=== PATIENT | female | born 1995 | race Caucasian/White ===

== ENCOUNTER → 2023-01-25 08:18 | Outpatient (BNVA) | payer OTHER, SELFPAY | PROVIDERS: PCP Internal Medicine; Visit Provider Nurse Practitioner Family | DX: G43.009 Migraine without aura, not intractable, without status migrainosus (principal); G47.9 Sleep disorder, unspecified | CPT/HCPCS: 99202 ==

== ENCOUNTER → 2023-04-05 13:49 | Outpatient (BNVA) | payer OTHER, SELFPAY | PROVIDERS: PCP Internal Medicine; Visit Provider Nurse Practitioner Family ==

== ENCOUNTER 2023-10-25 10:59 | Outpatient (AMB) | payer OTHER, SELFPAY ==
[2023-10-25 11:04] VITALS: BP 110/64; PULSE 99; O2SAT 97; BMI 32.8
--- NOTE | 2023-10-25 11:04 | MHC.OFFVIS ---
Intake Vital Signs 10/25/23 11:04 Height 5 ft Weight 168 lb BMI 32.8 BP 110/64 Blood Pressure Location Lt brachial Position Sitting Pulse 99 Pulse Source Pulse Oximeter Pulse Oximetry (%) 97 Oxygen Delivery Method Room Air Intake Visit Reasons: 6M F/U - LVM Intake Note: Pt presents to the office today for a 6 month follow up for migraines. Pt states since taking the Aimovig she isnt getting migraines but states she does still get small headaches every other week. Allergies amoxicillin [AMOXICILLIN] Allergy (Unknown, Unverified 10/25/23 11:06) UNKNOWN, hives Seasonal Allergies Allergy (Unknown, Verified 10/25/23 11:06) Hives Medication List - Last Reconciled 10/25/23 by JANUSZ Fields albuterol sulfate 90 mcg/actuation (ProAir HFA) 1 - 2 puffs inhalation Q4-6H PRN dupilumab (Dupixent) mg subcut Q2W epinephrine IM erenumab-aooe (Aimovig Autoinjector) 140 mg subcut ONCE 30 days levonorgestrel (Mirena) intrauterine magnesium oxide 400 mg PO BEDTIME 30 days riboflavin (vitamin B2) 400 mg PO DAILY 30 days rizatriptan 5 - 10 mg (0.5 - 1 x 10 mg) PO Q2H PRN 21 days HPI HPI Comments History of Present Illness Details 28-yr-old female presents for f/u visit. Pt denies any significant interval medical changes. We had increased Amitriptyline as pt was having 2 migraine attacks per week, but pt did not tolerate increase so pt stopped it. Since, pt was started on Aimovig approx 3 weeks ago- since she has not had a migraine. She has had a mild headache once every other week- responsive to OTC Aleve. She recently had a bout of right sided pressure neck pain into right mastoid region. This was mod-severe x's 3 days, then subsided over following 2 days. She had just woke up with this pain. Denies preceding infection, fever, ear pain. She never had this pain before. She tried Tylenol, Ibuprofen, Aleve, ice, heat- ineffective. She went to ER but the wait was very long- so left w/o being seen. She has woken up with neck pain before- from sleeping, but never was this intense or did not last that long. [facility], [facility] Medical History Depression Nasal polyps Asthma Family History Paternal Grandmother Cancer Mother Hypertension Hypercholesteremia Arthritis Father Diabetes History of heart attack Hypertension Sister Asthma Social History Alcohol intake: current Patient Tobacco Use Status: Never used Tobacco Review of Systems Const All systems reviewed & are unremarkable except as noted in HPI and below Physical Exam Vital Signs: Last Vital Signs Pulse 99 10/25/23 11:04 BP 110/64 10/25/23 11:04 Pulse Ox 97 10/25/23 11:04 Oxygen Delivery Method Room Air 10/25/23 11:04 BMI result Body Mass Index 32.8 Const General: cooperative and no acute distress Orientation/consciousness: patient oriented x3 HEENT Head: Yes normocephalic Resp Effort & Inspection: normal respiratory effort and able to speak in complete sentences Neuro Other: Mild posterior cervical tightness. No scalp tenderness. Full cervical ROM. General: patient oriented x3, gait normal and CN's II-XI intact bilaterally Cognition (Neuro): normal cognition Motor exam (neuro): 5/5 motor strength present throughout Psych Appearance: grossly normal Mental Status: mental status grossly normal Speech and movement: Normal speech and movement present Affect: normal affect Attitude: cooperative Thought process: Normal thought process present Thought content: Normal thought content present Assessment & Plan Assessment & Plan (1) Migraine without aura: Code(s): G43.009 - Migraine without aura, not intractable, without status migrainosus (2) Neck pain: Code(s): M54.2 - Cervicalgia Plan For overall headache management: Continue to optimize good self-care, including but not limited to maintaining a healthy diet, adequate fluid intake, adequate sleep, and engaging in regular physical activity. Track headaches. For right neck-mastoid pain- ? migraine If recurrs, trial Rizatriptan. Future considerations- c-spine imaging, PT. ? For acute headache treatment: Continue Rizatriptan 5-10mg prn. Reviewed potential adverse effects of triptans, including but not limited to nausea, fatigue, chest tightness/tingling (usually passes within a few minutes), medication overuse headaches. Previous acute migraine medication trials: Sumatriptan- sweating and head on fire sensation. Acute migraine medication contraindications: None at the time ? For headache prevention medication: Continue Riboflavin 400mg qam Continue Magnesium 400mg every other/every 3rd night-may hold for loose stools Continue Aimovig 140mg sc q month- as pt has already seen good clinical effect from use. Stop Amitriptyline 10mg qhs. Previous migraine prevention medication trials: Amitriptyline 20mg qhs- ineffective and not tolerated. Migraine prevention medication contraindications: BBS d/t symptomatic asthma dx. ? f/u in 4 months or sooner prn. Coding Level of Care Code Est Pt Level 4 (89326) Diagnoses Migraine without aura G43.009 Neck pain M54.2
== END 2023-10-25 11:46 | disposition home or self-care (01) ==
PROVIDERS: Visit Provider Nurse Practitioner Family
DX: G43.009 Migraine without aura, not intractable, without status migrainosus (principal); M54.2 Cervicalgia
CPT/HCPCS: 99214

== ENCOUNTER → 2023-10-25 10:59 | Outpatient (BNVA) | payer OTHER, SELFPAY | PROVIDERS: Visit Provider Nurse Practitioner Family | DX: G43.009 Migraine without aura, not intractable, without status migrainosus (principal); M54.2 Cervicalgia | CPT/HCPCS: 99212 ==

== ENCOUNTER 2024-02-21 10:47 | Outpatient (AMB) | payer OTHER, SELFPAY ==
--- NOTE | 2024-02-21 10:57 | MHC.OFFVIS ---
Intake Vital Signs 02/21/24 10:58 Height 5 ft Weight 162 lb BMI 31.6 BP 122/72 Blood Pressure Location Rt brachial Position Sitting Pulse 80 Pulse Source Pulse Oximeter Pulse Oximetry (%) 99 Oxygen Delivery Method Room Air Intake Visit Reasons: 4 mo f/u -Migraines-LVM Intake Note: Patient presents for 4 month follow up migraines. The week that patient is due for medication she gets the headache Allergies amoxicillin [AMOXICILLIN] Allergy (Unknown, Unverified 02/21/24 11:00) UNKNOWN, hives Seasonal Allergies Allergy (Unknown, Verified 02/21/24 11:00) Hives Medication List - Last Reconciled 02/21/24 by JANUSZ Fields albuterol sulfate 90 mcg/actuation (ProAir HFA) 1 - 2 puffs inhalation Q4-6H PRN dupilumab (Dupixent) mg subcut Q2W epinephrine IM erenumab-aooe (Aimovig Autoinjector) 140 mg subcut ONCE 30 days levonorgestrel (Mirena) intrauterine magnesium oxide 400 mg PO BEDTIME 30 days riboflavin (vitamin B2) 400 mg PO DAILY 30 days rizatriptan 5 - 10 mg (0.5 - 1 x 10 mg) PO Q2H PRN 21 days HPI HPI Comments History of Present Illness Details 29-yr-old female presents for f/u visit. Pt denies any significant interval medical changes. Pt reports her migraines have been better controlled on Aimovig. She does have increased migraines attacks during the last week of her Aimovig injection cycle. Rizatriptan can be helpful. Her neck pain has been better. She has been sleeping better. Baseline headache characteristics: Severe. Usually an aching pain in the left frontal to right frontal and into right face. Can be in pressure in the back of head as well. These occur together. A/w photophobia, phonophobia, (usually osmophobic d/t nasal polyps), nausea, brain fog, and fatigue. Denies paresthesias, autonomic, or focal weakness. [facility] Medical History Depression Nasal polyps Asthma Family History Paternal Grandmother Cancer Mother Hypertension Hypercholesteremia Arthritis Father Diabetes History of heart attack Hypertension Sister Asthma Social History Alcohol intake: current Patient Tobacco Use Status: Never used Tobacco Physical Exam Vital Signs: Last Vital Signs Pulse 80 02/21/24 10:58 BP 122/72 02/21/24 10:58 Pulse Ox 99 02/21/24 10:58 Oxygen Delivery Method Room Air 02/21/24 10:58 BMI result Body Mass Index 31.6 Const General: cooperative and no acute distress Orientation/consciousness: patient oriented x3 Resp Effort & Inspection: normal respiratory effort and able to speak in complete sentences Neuro General: patient oriented x3 Cranial nerves: Yes CN's II-XII intact bilaterally Cognition (Neuro): normal cognition Psych Appearance: grossly normal Mental Status: mental status grossly normal Speech and movement: Normal speech and movement present Affect: normal affect Attitude: cooperative Assessment & Plan Assessment & Plan (1) Migraine without aura: Code(s): G43.009 - Migraine without aura, not intractable, without status migrainosus (2) Neck pain: Code(s): M54.2 - Cervicalgia Plan For overall headache management: Continue to optimize good self-care, including but not limited to maintaining a healthy diet, adequate fluid intake, adequate sleep, and engaging in regular physical activity. Track headaches. ? For right neck-mastoid pain- If recurs, trial Rizatriptan. Future considerations- c-spine imaging, PT. ? For acute headache treatment: Continue Rizatriptan 5-10mg prn. Trial using Rizatriptan starting 1 day prior to onset of end of Aimovig cycle breakthrough migraine- may continue up to 3-4 days. Previous acute migraine medication trials: Sumatriptan- sweating and head on fire sensation. Acute migraine medication contraindications: None at the time ? For headache prevention medication: Continue Riboflavin 400mg qam Continue Magnesium 400mg every other/every 3rd night-may hold for loose stools Continue Aimovig 140mg sc q month. Previous migraine prevention medication trials: Amitriptyline 20mg qhs- ineffective and not tolerated. Migraine prevention medication contraindications: BBS d/t symptomatic asthma dx. ? f/u in 6 months or sooner prn. Coding Level of Care Code Est Pt Level 4 (61923) Diagnoses Migraine without aura G43.009 Neck pain M54.2
[2024-02-21 10:58] VITALS: BP 122/72; PULSE 80; O2SAT 99; BMI 31.6
== END 2024-02-21 11:40 | disposition home or self-care (01) ==
PROVIDERS: PCP Internal Medicine; Visit Provider Nurse Practitioner Family
DX: G43.009 Migraine without aura, not intractable, without status migrainosus (principal); M54.2 Cervicalgia
CPT/HCPCS: 99214

== ENCOUNTER → 2024-02-21 10:47 | Outpatient (BNVA) | payer OTHER, SELFPAY | PROVIDERS: PCP Internal Medicine; Visit Provider Nurse Practitioner Family | DX: G43.009 Migraine without aura, not intractable, without status migrainosus (principal); M54.2 Cervicalgia | CPT/HCPCS: 99212 ==

== ENCOUNTER 2024-08-21 09:15 | Outpatient (AMB) | payer OTHER, SELFPAY ==
[2024-08-21 09:17] VITALS: BP 114/80; PULSE 79; O2SAT 98
--- NOTE | 2024-08-21 09:17 | A.OFFVIS_ITS ---
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 Pt will be establishing care w/ new PCP- note will be forwarded to Dr Roach. Pt has been working w/ psychiatry to help manage her anxiety and has been undergoing med trials but she is prone to being sensitive to many medications. She has done genetic testing to help identify medication tolerances. She did trial Lamotrigene but this caused severe migraines, and possibly right upper arm muscle twitching. She is now trying clonidine qhs- which helps her fall asleep but still having difficulty maintaining sleep. Endorses some snoring, unrefreshing sleep, fatigue, daytime sleepiness. Denies restless legs, leg cramps. Since stopping the lamotrigene, her migraines have been better controlled again. Typically having 1-2 migraines per month. She does have increased migraines attacks during the last week of her Aimovig injection cycle- taking rizatriptan prophylactically does help this. Rizatriptan can be helpful but there have been times were it was not fully effective so pt was triad on Ubrelvy.. Tried the Ubrelvy 100mg- it was effective within 2 hrs. Has not had any neck pain in a while. Baseline headache characteristics: Severe. Usually an aching pain in the left frontal to right frontal and into right face. Can be in pressure in the back of head as well. These occur together. A/w photophobia, phonophobia, (usually osmophobic d/t nasal polyps), nausea, brain fog, and fatigue. Denies pare sthesias, autonomic, or focal weakness. COUNT INCLUDES [facility] Medical History Depression Nasal polyps Asthma Family History Paternal Grandmother Cancer Mother Hypertension Hypercholesteremia Arthritis Father Diabetes History of heart attack Hypertension Sister Asthma Social History Alcohol intake: current Patient Tobacco Use Status: Never used Tobacco Physical Exam Vital Signs: Last Vital Signs Pulse 79 08/21/24 09:17 BP 114/80 08/21/24 09:17 Pulse Ox 98 08/21/24 09:17 Oxygen Delivery Method Room Air 08/21/24 09:17 Const General: cooperative and no acute distress Orientation/consciousness: patient oriented x3 Resp Effort & Inspection: normal respiratory effort and able to speak in complete sentences Neuro General: patient oriented x3 Cranial nerves: Yes CN's II-XII intact bilaterally Cognition (Neuro): normal cognition Psych Appearance: grossly normal Mental Status: mental status grossly normal Speech and movement: Normal speech and movement present Affect: normal affect Attitude: cooperative Assessment & Plan Assessment & Plan (1) Migraine without aura: Code(s): G43.009 - Migraine without aura, not intractable, without status migrainosus Category: Medical (2) Sleep difficulties: Code(s): G47.9 - Sleep disorder, unspecified Category: Medical (3) Snoring: Code(s): R06.83 - Snoring Category: Medical (4) Excessive daytime sleepiness: Code(s): G47.19 - Other hypersomnia Category: Medical Plan For sleep difficulties: Pt advised to undergo HST to assess for sleep apnea. For overall headache management: Continue to optimize good self-care, including but not limited to maintaining a healthy diet, adequate fluid intake, adequate sleep, and engaging in regular physical activity. Track headaches. ? For right neck-mastoid pain- If recurs, trial Rizatriptan. Future considerations- c-spine imaging, PT. ? For acute headache treatment: Continue Rizatriptan 5-10mg prn. Continue Ubrogepant (Ubrelvy) 100mg tab, 1/2 - 1 tab (50-100mg) at onset of headache, may repeat in 2 hours. Max of 2 tabs (200mg) per 24 hours. May adjunct with OTC Tylenol 650mg q 4 hours, Ibuprofen 600mg q 6 hours, or Naproxen 440mg q 12 hrs prn. Trial using Ubrelvy inplace of Rizatriptan (as Ubrelvy does not have risk for inducing medication overuse headache) starting 1 day prior to onset of end of Aimovig cycle breakthrough migraine- may continue up to 3-4 days. Previous acute migraine medication trials: Sumatriptan- sweating and head on fire sensation. Acute migraine medication contraindications: None at the time ? For headache prevention medication: Continue Riboflavin 400mg qam Continue Magnesium 400mg every other/every 3rd night-may hold for loose stools Continue Aimovig 140mg sc q month. Previous migraine prevention medication trials: Amitriptyline 20mg qhs- ineffective and not tolerated. Lamotrigine- used for mood- caused worsening migraines and ? RUE muscle twitching. Migraine prevention medication contraindications: BBS d/t symptomatic asthma dx. ? f/u in 6 months or sooner prn. Orders: Orders RT home sleep study Today G47.19 - Other hypersomnia, G47.9 - Sleep disorder, unspecified, R06.83 - Snoring Coding Level of Care Code Est Pt Level 4 (91644) Diagnoses Migraine without aura G43.009 Sleep difficulties G47.9 Snoring R06.83 Excessive daytime sleepiness G47.19 [place] Sleepiness Scale Questions Sitting and reading: moderate chance of dozing Watching TV: moderate chance of dozing Sitting inactive in a theater, movie etc.: would never doze As a passenger in a car for an hour without break: high chance of dozing Lying down in the afternoon when circumstances permit: moderate chance of dozing Sitting and talking to someone: would never doze Sitting quietly after lunch without alcohol: moderate chance of dozing In a car, while stopped for a few minutes in the traffic: would never doze ESS < 10: normal, ESS > 12: pathologic: 11
== END 2024-08-21 10:11 | disposition home or self-care (01) ==
PROVIDERS: PCP Internal Medicine; Visit Provider Nurse Practitioner Family
DX: G43.009 Migraine without aura, not intractable, without status migrainosus (principal); G47.9 Sleep disorder, unspecified; R06.83 Snoring; G47.19 Other hypersomnia
CPT/HCPCS: 99214

== ENCOUNTER → 2024-08-21 09:15 | Outpatient (BNVA) | payer OTHER, SELFPAY | PROVIDERS: PCP Internal Medicine; Visit Provider Nurse Practitioner Family | DX: G43.009 Migraine without aura, not intractable, without status migrainosus (principal); G47.9 Sleep disorder, unspecified; R06.83 Snoring; G47.19 Other hypersomnia | CPT/HCPCS: 99212 ==

== ENCOUNTER → 2024-10-09 09:52 | Outpatient (REF) | payer OTHER, SELFPAY | LOC: HO.SL 09:52 | PROVIDERS: PCP Internal Medicine; Visit Provider Nurse Practitioner Family | DX: R06.83 Snoring (principal); G47.9 Sleep disorder, unspecified; G47.19 Other hypersomnia | CPT/HCPCS: 95806 ==

== ENCOUNTER → 2024-10-09 10:08 | Outpatient (BNV) | payer OTHER, SELFPAY | PROVIDERS: PCP Internal Medicine; Visit Provider Psychiatry & Neurology Neurology | DX: R06.83 Snoring (principal); G47.19 Other hypersomnia | CPT/HCPCS: 95806 ==

== ENCOUNTER 2024-11-14 09:28 | Outpatient (AMB) | payer OTHER, SELFPAY ==
--- NOTE | 2024-11-14 09:54 | MHC.PC.OV ---
Vital Signs 11/14/24 10:02 Height 5 ft 0.43 in Weight 158 lb 6 oz BMI 30.5 BP 104/66 Blood Pressure Location Rt brachial Position Sitting Pulse 101 H Pulse Source Pulse Oximeter Pulse Oximetry (%) 98 Oxygen Delivery Method Room Air Intake Visit Reasons: Establish Care Intake Note: New patient visit Die Set Up Worker Required: No Allergies amoxicillin [AMOXICILLIN] Allergy (Unknown, Verified 11/14/24 09:55) UNKNOWN, hives Seasonal Allergies Allergy (Unknown, Verified 11/14/24 09:55) Hives Tobacco use date assessed: 11/14/24 Dental Screening Dental Screen Date: 11/14/24 Did you have a dental visit in the last 12 months?: Yes Did you have a dental problem in the last 6 months where you did not have access to dental care?: No Was dental information given to patient?: Patient has dentist HPI HPI Comments History of Present Illness Details 29 year old female with a past medical history of anxiety, depression, migraines presenting to establish care[facility] On [facility]fe[facility], clonidine Follows with [facility] at [facility]. Gets allergy shots. Has had recent PNA, then more recent viral URI and then bullous myringitis. Neurology: Following with [facility], Dr Sarkar. 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 Says she is up to date ROS CONSTITUTIONAL: Denies weight loss, fever and chills. HEENT: Denies changes in vision and hearing. RESPIRATORY: Denies SOB and cough. CV: Denies palpitations and CP GI: Denies abdominal pain, nausea, vomiting and diarrhea. : Denies dysuria and urinary frequency. MSK: Denies new myalgia and joint pain. SKIN: Denies rash and pruritus. NEUROLOGICAL: Denies headache PSYCHIATRIC: Denies recent changes in mood. PHYSICAL EXAM: GENERAL: Alert and oriented x 3. NAD EYES: EOMI. Anicteric. HENT: Moist mucous membranes. No scleral icterus. No cervical lymphadenopathy. LUNGS: Clear to auscultation bilaterally. CARDIOVASCULAR: Regular rate and rhythm. No murmur. No JVD. ABDOMEN: Soft, non-tender +bs EXTREMITIES: No edema. Non-tender. SKIN: No rashes or lesions. Warm. NEUROLOGIC: No focal neurological deficits. CN II-XII grossly intact PSYCHIATRIC: Cooperative. Appropriate mood and affect [facility] Medical History (Updated 11/14/24 @ 13:44 by Lindsey Roach MD) Depression Nasal polyps Asthma Surgical History History of lumpectomy of right breast Family History Paternal Grandmother Cancer Colon cancer Mother Hypertension Hypercholesteremia Arthritis FH: mental illness Substance abuse Father Diabetes History of heart attack Hypertension FH: mental illness Substance abuse Sister Asthma Social History Housing: House Alcohol intake: current Patient Tobacco Use Status: Never used Tobacco e-Cigarette/Vaping Use: Never Used Second Hand Smoke Exposure: No service: No Current occupational status: employed 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 1. Little interest or pleasure in doing things: not at all 2. Feeling down, depressed, or hopeless: not at all 3. Trouble falling or staying asleep, or sleeping too much: nearly every day 4. Feeling tired or having little energy: several days 5. Poor appetite or overeating: not at all 6. Feeling bad about yourself - or that you are a failure or have let yourself or your family down: not at all 7. Trouble concentrating on things, such as reading the newspaper or watching television: not at all 8. Moving or speaking so slowly that other people could have noticed. Or the opposite - being so fidgety or restless that you have been moving around a lot more than usual: not at all 9. Thoughts that you would be better off or of hurting yourself in some way: not at all Total score: 4 Source: Developed by Drs. Ajith Hernandez, Kirstie Garcia, Jamari Ribera and colleagues, with an educational guillermina from [employer]. Thrive Questionnaire Date Thrive assessed: 11/07/24 I am a: Patient What is your living situation today?: I have a steady place to live Within the past 12 months, did the food you bought not last and you didn't have the money to get more?: Never true Within the past 12 months, did you worry whether your food would run out before you got money to buy more?: Never true Do you have trouble paying for medicines?: No Do you have trouble getting transportation to medical appointments?: No Do you have trouble paying your heating and electricity bill?: No Do you have trouble taking care of your child, family member or friend?: No Do you have trouble with day-to-day activities such as bathing, preparing meals, shopping, managing finances, etc.?: No Are you currently unemployed and looking for a job?: No Are you interested in more education?: No Please select the resources that you would like help with: None Currently or been in a relationship where the following occur: No concerns reported THRIVE Score: 0 AUDIT C Alcohol Use Questionnaire (AUDIT-C) 1. How often do you have a drink containing alcohol?: Monthly or less 2. How many drinks containing alcohol do you have on a typical day when you are drinking?: 1 or 2 3. How often do you have six or more drinks on one occasion?: Never Total Score: 1 DRE-7 AMB Questionnaire DRE-7 Feeling nervous, anxious, or on edge: 0 = Not at all Not being able to stop or control worryin = Not at all Worrying too much about different things: 0 = Not at all Trouble relaxin = Not at all Being so restless that it is hard to sit still: 0 = Not at all Becoming easily annoyed or irritable: 0 = Not at all Feeling afraid as if something awful might happen: 0 = Not at all Total DRE-7 score (0-4 normal; 5-9 mild; 10-14 moderate; 15-21 severe): 0 Source: Developed by Drs. Ajith Hernandez, Kirstie Garcia, Jamari Ribera and colleagues, with an educational guillermina from [email or web address]. ACT Questionnaire In the past 4 weeks, how much of the time did your asthma keep you from getting as much done at work, school or at home?: None of the time During the past 4 weeks, how often have you had shortness of breath?: Not at all During the past 4 weeks, how often did your asthma symptoms wake you up at night or earlier than usual in the morning?: Not at all During the past 4 weeks, how often have you had to use your rescue inhaler or nebulizer medication?: Once a week or less How would you rate your asthma control during the past 4 weeks?: Well controlled ACT Interpretation: Positive Score: 23 Physical exam (Primary Care) Vital Signs: Last Vital Signs Pulse 101 H 11/14/24 10:02 BP 104/66 11/14/24 10:02 Pulse Ox 98 11/14/24 10:02 Oxygen Delivery Method Room Air 11/14/24 10:02 BMI result Body Mass Index 30.5 Tobacco/Smoking Status: Tobacco use Status Tobacco use date assessed 11/14/24 11/14/24 10:05 Patient Tobacco Use Status Never used Tobacco 11/14/24 10:05 e-Cigarette/Vaping Use Never Used 11/14/24 10:05 PHQ-9: PHQ-9 Score PHQ-9: Total score 4 11/14/24 10:18 Thrive Assessment: Date of Thrive Assessment Date Thrive assessed 11/07/24 11/14/24 10:05 Currently or been in a relationship where the following occur: No concerns reported Coding Level of Care Code Est Pt Level 4 (47672) Diagnoses Intractable migraine without aura and without status migrainosus G43.019 Status migrainosus presence: without status migrainosus Intractability: intractable Recurrent major depressive disorder, in partial remission F33.41 Depression Type: major depressive disorder Major depression recurrence: recurrent Active/Remission status: in partial remission Mild intermittent asthma without complication J45.20 Asthma severity: mild Asthma persistence: intermittent Asthma complication type: uncomplicated Additional Codes Asthma Control Questionnaire - ACT Interpretation: Positive ([id number]) Assessment & Plan Assessment & Plan (1) Migraine without aura: Code(s): G43.009 - Migraine without aura, not intractable, without status migrainosus Category: Medical Qualifiers: Status migrainosus presence: without status migrainosus Intractability: intractable Qualified Code(s): G43.019 - Migraine without aura, intractable, without status migrainosus Plan: continue neurology follow up (2) Depression: Code(s): F32.A - Depression, unspecified Category: Medical Qualifiers: Depression Type: major depressive disorder Major depression recurrence: recurrent Active/Remission status: in partial remission Qualified Code(s): F33.41 - Major depressive disorder, recurrent, in partial remission Plan: controlled on current medication Continue follow up (3) Asthma: Comment: f/b Dr Castro at [facility] [place] Code(s): J45.909 - Unspecified asthma, uncomplicated Category: Medical Qualifiers: Asthma severity: mild Asthma persistence: intermittent Asthma complication type: uncomplicated Qualified Code(s): J45.20 - Mild intermittent asthma, uncomplicated Plan: controlled on meds Orders: Orders Vitamin D 1,25 dihydroxy Today G43.009 - Migraine without aura, not intractable, without status migrainosus, G47.9 - Sleep disorder, unspecified, M54.2 - Cervicalgia, Z13.0 - Encounter for screening for diseases of the blood and blood-forming organs and certain disorders involving the immune mechanism Complete Blood Count Auto Diff Today G43.009 - Migraine without aura, not intractable, without status migrainosus, G47.9 - Sleep disorder, unspecified, M54.2 - Cervicalgia, Z13.0 - Encounter for screening for diseases of the blood and blood-forming organs and certain disorders involving the immune mechanism Lyme IgG/IgM w/reflex to WB Today G43.009 - Migraine without aura, not intractable, without status migrainosus, G47.9 - Sleep disorder, unspecified, M54.2 - Cervicalgia, Z13.0 - Encounter for screening for diseases of the blood and blood-forming organs and certain disorders involving the immune mechanism Comprehensive Met. Panel Today G43.009 - Migraine without aura, not intractable, without status migrainosus, G47.9 - Sleep disorder, unspecified, M54.2 - Cervicalgia, Z13.0 - Encounter for screening for diseases of the blood and blood-forming organs and certain disorders involving the immune mechanism IRON PROFILE Today G43.009 - Migraine without aura, not intractable, without status migrainosus, G47.9 - Sleep disorder, unspecified, M54.2 - Cervicalgia, Z13.0 - Encounter for screening for diseases of the blood and blood-forming organs and certain disorders involving the immune mechanism Medications: New triamcinolone acetonide 0.1% 1 appl topical DAILY 453.6 grams 3RF
[2024-11-14 10:02] VITALS: BP 104/66; PULSE 101; O2SAT 98; BMI 30.5
== END 2024-11-14 10:32 | disposition home or self-care (01) ==
PROVIDERS: PCP Internal Medicine; Visit Provider Internal Medicine
DX: G43.019 Migraine without aura, intractable, without status migrainosus (principal); F33.41 Major depressive disorder, recurrent, in partial remission; J45.20 Mild intermittent asthma, uncomplicated

== ENCOUNTER → 2024-11-14 09:28 | Outpatient (BNVA) | payer OTHER, SELFPAY | PROVIDERS: PCP Internal Medicine; Visit Provider Internal Medicine | DX: G43.019 Migraine without aura, intractable, without status migrainosus (principal); F33.41 Major depressive disorder, recurrent, in partial remission; J45.20 Mild intermittent asthma, uncomplicated; F41.9 Anxiety disorder, unspecified; Z79.899 Other long term (current) drug therapy | CPT/HCPCS: 96127; 96160; 99212 ==

== ENCOUNTER 2024-11-14 10:35 | Outpatient (REF) | payer OTHER, SELFPAY ==
[2024-11-14 11:51] LABS: MANUAL DIFF FLAG NO
[2024-11-14 11:56] LABS: Basophils Absolute Auto 0.1 X10*3/uL (0.0-0.2); Basophils Percent Auto 0.7 % (0-2); Eosinophils Absolute Auto 0.1 X10*3/uL (0.0-0.4); Eosinophils Percent Auto 1.5 % (0-4); Hematocrit 41.2 % (37.0-47.0); Hemoglobin 13.9 g/dl (12.0-16.0); Imm Gran Abs Auto 0.03 X10*3/uL (0.00-0.03); Imm Gran Pct Auto 0.4 % (0.0-0.4); Lymphocytes Absolute Auto 2.2 X10*3/uL (1.2-4.9); Lymphocytes Percent Auto 30.9 % (20-40); Mean Corpuscular HGB Conc 33.7 g/dl (31.0-35.0); Mean Corpuscular Hemoglobin 29.4 pg (27.0-33.0); Mean Corpuscular Volume 87.3 fL (80.0-98.0); Mean Platelet Volume 10.2 fL (9.4-12.3); Monocytes Absolute Auto 0.4 X10*3/uL (0.1-1.2); Monocytes Percent Auto 5.6 % (2-11); Neutrophils Absolute Auto 4.3 x10*3/uL (2.0-8.3); Neutrophils Percent Auto 60.9 % (45-73); Platelet Count 375 X10*3/uL (160-400); Red Blood Count 4.72 X10*6/uL (4.20-5.50); Red Cell Distribution Width 13.2 % (11.0-16.0); White Blood Count 7.1 X10*3/uL (4.8-10.8)
[2024-11-14 13:08] LABS: Alanine Aminotransferase 20 U/L (0-31); Albumin Level 4.5 g/dL (3.5-5.0); Alkaline Phosphatase 50 U/L (39-117); Anion Gap 11 (12-20); Aspartate Amino Transferase 18 U/L (5-31); Bilirubin Total 0.7 mg/dL (0.0-1.0); Blood Urea Nitrogen 16 mg/dL (9-16); Calcium 9.7 mg/dL (8.4-10.2); Carbon Dioxide 28 mmol/L (22-29); Chloride 108 mmol/L (96-108); Estimated Glomerular Filt Rate > 60; Glucose Random 83 mg/dL (60-115); Iron 102 mcg/dL (30-160); Percent Iron Saturation 35 % (15-50); Sodium 143 mmol/L (135-145); Total Iron Binding Capacity 291 mcg/dL (228-428); Total Protein 7.8 g/dL (6.5-8.0); Unsaturated Iron Binding 189 ug/dL
[2024-11-17 17:53] LABS: Lyme Abs Screen <0.90 index
[2024-11-19 13:38] LABS: VITAMIN D (1,25 OH) D3 33 pg/mL; Vit D (1,25-Dihydroxy) Total 33 pg/mL (18-72); Vitamin D (1,25 OH) D2 <8 pg/mL
== END 2024-11-14 10:36 | disposition home or self-care (01) ==
LOC: HO.WFDLDS 10:35
PROVIDERS: Visit Provider Internal Medicine
DX: G43.009 Migraine without aura, not intractable, without status migrainosus (principal); G47.9 Sleep disorder, unspecified; M54.2 Cervicalgia; Z13.0 Encounter for screening for diseases of the blood and blood-forming organs and certain disorders involving the immune mechanism
CPT/HCPCS: 36415; 80053; 82652; 83540; 85025; 86617; 86618

== ENCOUNTER 2025-03-05 08:26 | Outpatient (AMB) | payer OTHER, SELFPAY ==
--- OUTSIDE RECORDS SUMMARY | 2025-03-05 08:36 | XMS_ITS | Encounter Summary ---
Author Organization [facility] Address [address] [place] [address] Care Team Providers Care Polyethylene Combiner Name Role Phone Crystal Peter MD Primary Care Provider Unava Di Hernandez MD Primary Care Provider Edison Thomas MD Primary Care Provider Unava fadiable Laura Travis MD Primary Care Provider Unavailab Abel Roberts MD Primary Care Provider Unav ailable Encounter Details Date Type Department Care Team Description 04/04/2017 Release of Information Medical Records [address] [place] [id number] Abstract, Provider Social History Tobacco Use Types Packs/Day Years Used Date Smoking Tobacco: Never Alcohol Use Standard Drinks/Week Comments No 0 (1 standard drink = 0.6 oz pur e alcohol) Sex Assigned at Date Recorded Not on file Job Start Date Occupation Industry Not on file Not on file Not on file documented as of this encounter Plan of Treatment Not on file documented as of this encounter Visit Diagnoses Not on filedocumented in this encounter Care Teams Polyethylene Combiner Relationship Specialty Start Date End Date Crystal Peter MD PCP - General 08/30/09 05/07/18 Di Robertson MD PCP - General Internal Medicine 05/08/18 11/30/19 Edison White MD PCP - General Internal Medicine 12/01/19 06/22/21 Laura Travis MD PCP - General Internal Medicine 06/23/21 06/17/24 Abel Huggins MD PCP - General Family Practice 06/18/24 documented as of this encounter
--- OUTSIDE RECORDS SUMMARY | 2025-03-05 08:36 | XMS_ITS | Encounter Summary ---
Author Organization [facility] Address [address] [place] [address] Phone Care Team Providers Care Food Services Coordinator Name Role Phone Crystal Peter MD Primary Care Provider [phone] Encounter Details Date Type Department Care Team (Late st Contact Info) Description 03/28/2012 Documentation [facility] Family Medicine [address] [place], [place] [id number] Family Medicine, Physician [address], [place] [id number] Social History Tobacco Use Types Packs/Day Years Used Date Smoking Tobacco: Never Assessed Comments Unknown Sex and Gender Information Value Date Recorded Sex Assigned at Not on file Legal Sex Female 4:51 PM EDT Gender Identity Not on file Sexual Orientation Not on file documented as of this encounter Plan of Treatment Not on file documented as of this encounter Visit Diagnoses Not on filedocumented in this encounter Care Teams Food Services Coordinator Relationship Specialty Start Date End Date Crystal Peter MD [address] [place] [address] [place] [address] PCP - General 07/06/17 02/25/23 documented as of this encounter
--- OUTSIDE RECORDS SUMMARY | 2025-03-05 08:36 | XMS_ITS | Encounter Summary ---
Author Organization [facility] Address [address] [place] [address] Care Team Providers Care Electroencephalograph Technician Name Role Phone Crystal Peter MD Primary Care Provider Unava iD Hernandez MD Primary Care Provider Edison Thomas MD Primary Care Provider Unava fadiable Laura Travis MD Primary Care Provider Unavailab Abel Roberts MD Primary Care Provider Unav ailable Encounter Details Date Type Department Care Team Description 04/02/2017 Transfer Records Medical Records [address] [place] [id number] Abstract, Provider Social History Tobacco Use Types [...] on filedocumented in this encounter Care Teams Electroencephalograph Technician Relationship Specialty Start Date End Date Crystal [...]
--- OUTSIDE RECORDS SUMMARY | 2025-03-05 08:36 | XMS_ITS | Encounter Summary ---
Author Organization [facility] Address [address] [place] [address] Care Team Providers Care Vice President Residential Solar Sales Name Role Phone Laura Travis MD Primary Care Provider Abel Mahmood MD Primary Care Provider Unav ailable Encounter Details Date Type Department Care Team Description 05/19/2022 Pt. Non Urgent Medical Question OBGYN - [facility] [address] [place] [address] Candy Ramirez CNM [address] [place] [address] Social History Tobacco Use Types Packs/Day Years Used Date Smoking Tobacco: Never Smokeless Tobacco: Never Alcohol Use Standard Drinks/Week Comments No 0 (1 standard drink = 0.6 oz pur e alcohol) Sex Assigned at Date Recorded Not on file Job Start Date Occupation Industry Not on file Not on file Not on file COVID-19 Exposure Response Date Recorded In the last 10 days, have yo u been in contact with someone who was confirmed or suspected to have Coronavirus/COVID-19? Unable to assess 05/18/2022 10:57 AM EDT documented as of this encounter Miscellaneous Notes * Telephone Encounter - Char Dobbs R.N. - 05/19/2022 11:48 AM EDTFrom: Coby Timmons To: Candy Ramirez CNM Sent: 05/19/2022 10:58 AM EDT Subject: Neurology Ref Allen, was told by candy yesterday that a neurology referral was sent in february. when i called Dr. Turk office yesterday they stated they have not received a referral and that is why i havent heard from their office. documented in this encounter Plan of Treatment Not on file documented as of this encounter Visit Diagnoses Not on filedocumented in this encounter Care Teams Vice President Residential Solar Sales Relationship Specialty Start Date End Date Laura Travis MD PCP - General Internal Medicine 06/23/21 06/17/24 Abel Huggins MD PCP - General Family Practice 06/18/24 documented as of this encounter
--- OUTSIDE RECORDS SUMMARY | 2025-03-05 08:36 | XMS_ITS | Encounter Summary ---
Author Organization [facility] Address [address] [place] [address] Phone Care Team Providers Care Cage/Vault Supervisor Name Role Phone Crystal Peter MD Primary Care Provider [phone] Encounter Details Date Type Department Care Team (Late st Contact Info) Description 10/22/2012 Documentation [facility] [address] [place], [place] [id number] Family Medicine, Physician [address], [place] [phone] Social History Tobacco Use Types Packs/Day Years [...] on filedocumented in this encounter Care Teams Cage/Vault Supervisor Relationship Specialty Start Date End Date Crystal Peter MD [address] [place] [address] [place] [address] PCP - General 07/06/17 02/25/23 documented as of this encounter
--- OUTSIDE RECORDS SUMMARY | 2025-03-05 08:36 | XMS_ITS | Encounter Summary ---
Author Organization [facility] Address [address] [place] [address] Care Team Providers Care Blanket Inspector Name Role Phone Laura Travis MD Primary Care Provider Abel Mahmood MD Primary Care Provider Unav ailable Encounter Details Date Type Department Care Team Description 12/16/2021 Pt. Non Urgent Medical Question OBGYN - [address] [facility] [address] [place] [address] Pamela Ramirez CNM [address] [place] [address] Social History Tobacco Use Types Packs/Day Years Used Date Smoking Tobacco: Never Smokeless Tobacco: Never Alcohol Use Standard Drinks/Week Comments No 0 (1 standard drink = 0.6 oz pur e alcohol) Sex Assigned at Date Recorded Not on file Job Start Date Occupation Industry Not on file Not on file Not on file documented as of this encounter Miscellaneous Notes * Telephone Encounter - Lesley Wilkins R.N. - 12/16/2021 9:05 AM ESTFrom: Coby Timmons To: Pamela Ramirez CNM Sent: 12/16/2021 8:23 AM EST Subject: Period Hello, yesterday was my first day on my period since having my daughter on 10/10. im not sure if i should be concerned but this happened yesterday. After wiping this was on the tissue. documented in this encounter Plan of Treatment Not on file documented as of this encounter Visit Diagnoses Not on filedocumented in this encounter Care Teams Blanket Inspector Relationship Specialty Start Date End Date Laura Travis MD PCP - General Internal Medicine 06/23/21 06/17/24 Abel Huggins MD PCP - General Family Practice 06/18/24 documented as of this encounter
--- OUTSIDE RECORDS SUMMARY | 2025-03-05 08:36 | XMS_ITS | Encounter Summary ---
Author Organization [facility] Address [address] [place] [address] Care Team Providers Care Tub Rider Name Role Phone Laura Travis MD Primary Care Provider Unavailab Abel Roberts MD Primary Care Provider Unav ailable Encounter Details Date Type Department Care Team Description 05/22/2022 Pt. Non Urgent Medical Question OBGYN - [address] [facility] [address] [place] [address] Pamela Ramirez, [facility] [address] [place] [phone] Social History Tobacco Use Types Packs/Day Years [...] Recorded In the last 10 days, have rebecca singh been in contact with someone who was confirmed or suspected to have Coronavirus/COVID-19? Unable to assess 05/23/2022 8:24 AM EDT documented as of this encounter Plan of Treatment Not on file documented as of this encounter Visit Diagnoses Not on filedocumented in this encounter Care Teams Tub Rider Relationship Specialty Start Date End Date Laura Travis MD PCP - General Internal Medicine 06/23/21 06/17/24 Abel Huggins MD PCP - General Family Practice 06/18/24 documented as of this encounter
--- OUTSIDE RECORDS SUMMARY | 2025-03-05 08:36 | XMS_ITS | Clinical Summary ---
Author Organization [facility] Address [address] [place] [address] Care Team Providers Care Tram Driver Name Role Phone Abel Huggins MD Primary Care Provider Surgical History Surgery Date Site/Laterality Comments BREAST LUMPECTOMY PROCEDURE: HISTORICAL BREAST LUMPECTOMY; COMMENT: right, fibroadenoma, [facility] 06/2010 Medical History Medical History Date Comments Seasonal allergies 03/06/2016 DX:Seasonal a llergies History of depression 12/21/2014 DX:History of depression Positive TB test 2012 DX:Positive TB test; COMMENT: Chest X-Ray 2012 negative History of vitamin D deficiency 03/27/2014 DX:History of vitamin D deficiency; COMMENT: Vitamin D = 8 Migraines DX:Migraines Allergy-induced asthma DX:Allerg y-induced asthma Immune to varicella 12/21/2014 DX:Immune to varicella Anxiety and depression 03/31/2021 DX:Anxiet y and depression Asthma due to environmental allergies 03/31/2021 DX:Asthma due to environmental allergies Abnormal finding on urinalysis 09/17/2021 D X:Abnormal finding on urinalysis; COMMENT: Treated in triage 09/16/2021 for suspected UTI with Macrobid pending urine culture results Family History Medical History Relation Name Comments COPD Father Other: heart disease Father Prostate cancer Maternal Grandfather Hypertension Maternal Grandmother Arthritis Mother Other: high cholestrol Mother Colon cancer Paternal Grandmother d age 50 Breast cancer Neg Hx Ovarian cancer Neg Hx Relation Name Status Comments Father Maternal Grandfather Maternal Grandmother Mother Paternal Grandmother Social History Tobacco Use Types Packs/Day Years Used Date Smoking Tobacco: Never Smokeless Tobacco: Never Alcohol Use Standard Drinks/Week Comments No 0 (1 standard drink = 0.6 oz pur e alcohol) Comments Unknown Sex and Gender Information Value Date Recorded Sex Assigned at Not on file Legal Sex Female 4:01 PM EST Gender Identity Not on file Sexual Orientation Not on file Obstetrics History Last Filed Vital Signs Vital Sign Reading Time Taken Comments Blood Pressure 111/81 06/19/2024 9:47 AM EDT Pulse 89 06/19/2024 9:47 AM EDT Temperature - - Respiratory Rate - - Oxygen Saturation - - Inhaled Oxygen Concentration - - Weight 73 kg (161 lb) 06/19/2024 9:47 AM EDT Height 152.4 cm (5') 06/19/2024 9:47 AM EDT Body Mass Index 31.44 06/19/2024 9:47 AM EDT Plan of Treatment Health Maintenance Due Date Last Done Comments Hepatitis B Vaccines (1 of 3 - 19+ 3-dose series) 02/10/2012 Depression Screening 10/25/2022 HIV Screening 10/25/2022 Hepatitis C Screening 10/25/2022 Social Influencers of Health Screening 10/25/2022 COVID-19 Vaccine (3 - 2023-2 5 season) 2024 01/09/2021, 12/19/2020 Influenza Vaccine (Season Ended) 2025 08/18/2021 Cervical Cancer Screening: P ap Smear 06/19/2027 06/19/2024, 08/26/2019 DTaP,Tdap,and Td Vaccines (3 - Td or Tdap) 09/01/2031 09/01/2021, 07/08/2015 HIB Vaccines Aged Out No longer eligi ble based on patient's age to complete this topic HPV Vaccines Aged Out No longer eligi ble based on patient's age to complete this topic Hepatitis A Vaccines Aged Out No long er eligible based on patient's age to complete this topic IPV Vaccines Aged Out No longer eligi ble based on patient's age to complete this topic MMR Vaccines Aged Out No longer eligi ble based on patient's age to complete this topic Meningococcal ACWY Vaccine Aged Out N o longer eligible based on patient's age to complete this topic Meningococcal B Vaccine Aged Out No l onger eligible based on patient's age to complete this topic Pneumococcal Vaccine: Pediatrics (0 to 5 Years) and At-Risk Patients (6 to 64 Years) Aged Out No longer eligible b ased on patient's age to complete this topic RSV Immunization Patients Under 20 months Aged Out No longer eligible b ased on patient's age to complete this topic Varicella Vaccines Aged Out No longer eligible based on patient's age to complete this topic Procedures Procedure Name Priority Date/Time Associated Diagnosis Comments PAP SMEAR Routine 06/19/2024 from Last 3 Months or Most Recently Relevant to Health Maintenance Results * Pap smear (06/19/2024) 06/19/2024 Narrative HISTORICAL TESTING LAB RESULTING AGENCY - 06/24/2024 4:50 PM EDT [id number] THINPREP PAP, IMAGED: NEGATIVE FOR SQUAMOUS INTRAEPITHELIAL LESION AND MALIGNANCY . REACTIVE CELLULAR CHANGES. ABUNDANT RED BLOOD CELLS ARE PRESENT. NOTE: ??ADEQUACY DEEMED SATISFACTORY AFTER REPROCESSING WITH ACID WASH PROCEDURE. CHIO RODRIGUEZ M.D. , PATHOLOGIST (CASE ELECTRONICALLY SIGNED 06 24 2024) RESULT OF APTIMA HIGH RISK HPV ASSAY: HIGH RISK HPV: ??NEGATIVE (SEROTYPES 16,18,31,33,35,39,45,51,52,56,58,59,66,68) COMPLETED ON 2024-06-23 ADEQUACY: SATISFACTORY ENDOCERVICAL/TRANSFORMATION ZONE COMPONENT PRESENT. SOURCE: THINPREP PAP HPV ANY DX: ??REFLEX 16 AND 18, CERVICAL, IMAGED CLINICAL INFORMATION: THINPREP ANY, LMP 06/17/24, PAP HX NEGATIVE 2019, [[id number]] Pamela Ramirez [facility] LAB CYTOLOGY ORDERABLES Final Result HISTORICAL TESTING LAB RESULTING AGENCY from Last 3 Months or Most Recently Relevant to Health Maintenance Care Teams Tram Driver Relationship Specialty Start Date End Date Abel Huggins MD [address] [place] [address] Dr Jonel [place] PCP - General 06/18/24
--- OUTSIDE RECORDS SUMMARY | 2025-03-05 08:36 | XMS_ITS | Encounter Summary ---
Author Organization [facility] Address [address] [place] [address] Care Team Providers Care Information Services Vice President Name Role Phone Larua Travis MD Primary Care Provider Unavailab Abel Roberts MD Primary Care Provider Unav ailable Encounter Details Date Type Department Care Team Description 04/25/2022 Pt. Non Urgent Medical Question OBGYN - [address] [facility] [address] [place] [address] Pamela Ramirez, BETTYE [address] [place] [address] Social History Tobacco Use Types [...] on filedocumented in this encounter Care Teams Information Services Vice President Relationship Specialty Start Date End Date Laura Travis MD PCP - General Internal Medicine 06/23/21 06/17/24 Abel Huggins MD PCP - General Family Practice 06/18/24 documented as of this encounter
--- OUTSIDE RECORDS SUMMARY | 2025-03-05 08:36 | XMS_ITS | Encounter Summary ---
Author Organization [facility] Address [address] [place] [phone] Phone Care Team Providers Care Clinical Nursing Coordinator Name Role Phone Crystal Peter MD Primary Care Provider [phone] Encounter Details Date Type Department Care Team (Late st Contact Info) Description 03/25/2012 Documentation [facility] [place] Family Medicine [address] [place], [place] [phone] Family Medicine, Physician [address] [place], [place] [address] Social History Tobacco Use Types Packs/Day Years [...] on filedocumented in this encounter Care Teams Clinical Nursing Coordinator Relationship Specialty Start Date End Date Crystal Peter MD [address] [place] [address] [place] [address] PCP - General 07/06/17 02/25/23 documented as of this encounter
--- OUTSIDE RECORDS SUMMARY | 2025-03-05 08:36 | XMS_ITS | Encounter Summary ---
Author Organization [facility] Address [address] [place] [address] Phone Care Team Providers Care Automatic Grinder Operator Name Role Phone Crystal Peter MD Primary Care Provider [phone] Encounter Details Date Type Department Care Team (Late st Contact Info) Description 03/27/2012 Documentation [facility] [place] Family Medicine [address] [place], [place] [phone] Family Medicine, Physician [address] [place], [place] [phone] Social History Tobacco Use Types Packs/Day Years [...] on filedocumented in this encounter Care Teams Automatic Grinder Operator Relationship Specialty Start Date End Date Crysatl Peter MD [address] [place] [address] [place] [address] PCP - General 07/06/17 02/25/23 documented as of this encounter
--- OUTSIDE RECORDS SUMMARY | 2025-03-05 08:36 | XMS_ITS | Encounter Summary ---
Author Organization [facility] Address [address] [place] [address] Care Team Providers Care Pcb Designer Name Role Phone Crystal Peter MD Primary Care Provider Di Figueroa MD Primary Care Provider Edison Thomas MD Primary Care Provider Unava Laura Sutherland MD Primary Care Provider UnavailAbel Acosta MD Primary Care Provider Unav ailable Encounter Details Date Type Department Care Team Description 07/18/2017 Orders Only COIL FINISHER - [address] [phone] Kaylin Brown CNM Metrorrhagia Social History Tobacco Use Types Packs/Day Years [...] on file documented as of this encounter Procedures Procedure Name Priority Date/Time Associated Diagnosis Comments SONO PELVIS COMPLETE Routine 07/05/2017 Metrorrhagia documented in this encounter Results * SONO PELVIS COMPLETE (07/05/2017) Kaylin Brown CNM ULTRASOUND documented in this encounter Visit Diagnoses Diagnosis Metrorrhagia documented in this encounter Care Teams Pcb Designer Relationship Specialty Start Date End Date Crystal [...]
--- OUTSIDE RECORDS SUMMARY | 2025-03-05 08:37 | XMS_ITS | Clinical Summary ---
Author Organization [facility] Address [address] [place] [phone] Phone Care Team Providers Care Title Lawyer Name Role Phone Unavailable Primary Care Provider Unavailabl e Immunizations Immunization Administration Dates Next Due DTP 09/20/1994, 3,1993,05/02 DTaP 5 12/24/1997 H1N1 09/17/2009 HPV, Quadrivalent 03/09/2008,11/04/2007,09/04/20 07 Hep B, ped/adol 1993,1993,1993 Hib (PRP-T) 02/22/1995, 4,1993,06/24,1993 IPV 09/20/1994 Influenza Split 09/15/2010 Influenza, injectable, trivalent 10/07/2011,08/27,09/15/2008 Influenza, intranasal, trivalent 12/26/2012 MMR 12/24/1997,02/23/1994 Meningococcal Conj (Menactra) MCV4P 09/04/2007 OPV 12/24/1997,1993,1993 Td (adult) (MBL), 2 Lf tetan us toxoid, PF, adsorbed 04/04/2004 Tdap 09/15/2008 Family History Relation Name Status Comments Father Alive Father: Diabete s mellitus Mother Alive Mother: Hyperli pidemia Other Family history of Diabetes mellitus Sister Alive Sister: Asthma Social History Tobacco Use Types Packs/Day Years Used Date Smoking Tobacco: Never Comments:Never smoker Comments Unknown Sex and Gender Information Value Date Recorded Sex Assigned at Not on file Legal Sex Female 4:51 PM EDT Gender Identity Not on file Sexual Orientation Not on file Last Filed Vital Signs Vital Sign Reading Time Taken Comments Blood Pressure 112/80 08/04/2013 12:00 AM EDT Pulse - - Temperature 37.2 ??C (98.9 ??F) 08/04/2013 12:00 AM E DT Respiratory Rate - - Oxygen Saturation - - Inhaled Oxygen Concentration - - Weight 55.8 kg (123 lb) 08/04/2013 12:00 AM EDT Height 152.4 cm (5') 08/04/2013 12:00 AM EDT Body Mass Index 24.02 08/04/2013 12:00 AM EDT Plan of Treatment Health Maintenance Due Date Last Done Comments Varicella Vaccines (1 of 2 - 13+ 2-dose series) 01/23/2013 DTaP,Tdap,and Td Vaccines (7 - Td or Tdap) 09/15/2018 09/15/2008, 04/04/2004, 12/24/1997, Additional history exists Influenza Vaccines (#1) 2024 12/26/19 13, 10/07/2011, 09/15/2010, Additional history exists COVID-19 Vaccine ( season) 2024 Hepatitis B Vaccines Completed 1993, 1993, 1993 HIB Vaccines Completed 02/22/1995, 01/26, 1993, Additional history exists IPV Vaccines Completed 12/24/1997, 08/27, 1993, Additional history exists MMR Vaccines Completed 12/24/1997, 02/23/1994 Meningococcal Vaccine Aged Out 09/04/2007 No lang adebayo eligible based on patient's age to complete this topic HPV Vaccines Completed 03/09/2008, 10/26, 09/04/2007 Hepatitis A Vaccines Aged Out No long er eligible based on patient's age to complete this topic Men B Vaccine Aged Out No longer elig ible based on patient's age to complete this topic Pneumococcal Vaccine Aged Out No long er eligible based on patient's age to complete this topic
--- OUTSIDE RECORDS SUMMARY | 2025-03-05 08:37 | XMS_ITS | Encounter Summary ---
Author Organization [facility] Address [address] [place] [address] Care Team Providers Care Crop Specialist Name Role Phone Edison White MD Primary Care Provider Laura Lewis MD Primary Care Provider UnavailAbel Acosta MD Primary Care Provider Unav ailable Encounter Details Date Type Department Care Team Description 02/28/2021 Pt. Non Urgent Medical Question OBGYN - [address] [address] Nancie Alvarenga CNM [address] [place] [id number] Social History Tobacco Use Types Packs/Day Years Used Date Smoking Tobacco: Never Smokeless Tobacco: Never Alcohol Use Standard Drinks/Week Comments No 0 (1 standard drink = 0.6 oz pur e alcohol) Sex Assigned at Date Recorded Not on file Job Start Date Occupation Industry Not on file Not on file Not on file COVID-19 Exposure Response Date Recorded In the last month, have you been in contact with someone who was confirmed or suspected to have Coronavirus / COVID-19? No / Unsure 02/28/2021 3:26 PM EDT documented as of this encounter Miscellaneous Notes * Telephone Encounter - Lesley Wilkins R.N. - 02/28/2021 12:03 PM EDTFrom: Coby Timmons To: Nancie Alvarenga CNM Sent: 02/28/2021 11:04 AM EDT Subject: Ultrasound Hello, i have an ultrasound booked for this sunday. but i wanted to know if i could change it for a soonerappt like Sunday or Sunday, maybe i can try to go to [facility] instead. i tried to call radiology multiple times today but it keeps saying unavailable. please give me a call if you are to book an ultr asound somewhere else sooner thank you documented in this encounter Plan of Treatment Not on file documented as of this encounter Visit Diagnoses Not on filedocumented in this encounter Care Teams Crop Specialist Relationship Specialty Start Date End Date Edison White MD PCP - General Internal Medicine 12/01/19 06/22/21 Laura Travis MD PCP - General Internal Medicine 06/23/21 06/17/24 Abel Huggins MD PCP - General Family Practice 06/18/24 documented as of this encounter
--- OUTSIDE RECORDS SUMMARY | 2025-03-05 08:37 | XMS_ITS | Encounter Summary ---
Author Organization [facility] Address [address] [place] [address] Care Team Providers Care Parts Clerk Name Role Phone Di Robertson MD Primary Care Provider Edison Thomas MD Primary Care Provider Misa ilLaura Thurston MD Primary Care Provider Unavailab Abel Roberts MD Primary Care Provider Unav ailable Encounter Details Date Type Department Care Team Description 11/13/2019 Refill JIGGER OPERATOR - [place] [address] [place] [id number] Sheridan Riggs CNM [address] [place] [address] Social History Tobacco Use Types [...] documented as of this encounter Visit Diagnoses Diagnosis Hx of major depression Personal history of other mental disorder documented in this encounter Care Teams Parts Clerk Relationship Specialty Start Date End Date Di Robertson MD PCP - General Internal Medicine 05/08/18 11/30/19 Edison White MD PCP - General Internal Medicine 12/01/19 06/22/21 Laura Travis MD PCP - General Internal Medicine 06/23/21 06/17/24 Abel Huggins MD PCP - General Family Practice 06/18/24 documented as of this encounter
--- OUTSIDE RECORDS SUMMARY | 2025-03-05 08:37 | XMS_ITS ---
Author Organization [facility] Address [address] [place] [phone] Care Team Providers Care Flat Folding Machine Operator Name Role Phone OLYA MICHEL Unavailable [phone] Allergies Allergen (clinical drug ingredient) Drug/Non Drug Allergy documented on EMR Reaction Allergy Type Onset Date Status amoxicillin Amoxicillin Unknown Drug Allergy Act nikki Results Component Value Reference Range Notes Wet Mount Reviewed date:12/10/2024 03:49:39 PM Interpretation:BV positive Performing Lab: Notes/Report: BV positive Clue Cells pos WBC pos Hyphae neg Trichomonas neg pH 5.[address] faint pos [address], Ng, Trich vag by [id number] Reviewed date:12/12/2024 11:13:11 AM Interpretation:Negative Performing Lab:[facility], Elvis [address], [address], [place], Phone - [phone], Director - [facility] Notes/Report: Chlamydia by RHYS Negative Negative Gonococcus by RHYS Negative Negative Trich vag by RHYS Negative Negative REASON FOR VISIT Infection Screening Medications Medication SIG (Take, Route, Frequency, Duration) Notes Start Date End Date Status Mirena 2021? Active Aimovig Active Effexor Active Albuterol As needed Active MetroGel-Vaginal 0.75 % 1 application at bedtime Vaginal Once a day for 5 day(s) 12/10/2024 Active Ubrelvy Active Dupixent Active Social History Sex Assigned At : Social History Observation Description Sex Assigned At Female Section Notes: Aptima Vital Signs Blood pressure systolic 116 mm Hg 12/10/19 25 Blood pressure diastolic 68 mm Hg 025 Height 5'0 in 12/10/2024 Weight 161.2 lbs 12/10/2024 BMI 31.48 kg/m2 12/10/2024 Encounters Encounter Location Date Provider Diagnosis [place] [facility] [address] [place], [place] [phone] 12/10/2024 OLYA MICHEL Encounter for scre ening for infections with a predominantly sexual mode of transmission Z11.3 ; Acute vaginitis N76.0 and Other problems related to lifestyle Z72.89 Assessments Encounter Date Diagnosis (ICD Code) Assessment Notes Treatment Notes Treatment Clinical Notes Section Notes 12/10/2024 Encounter for screening for infections with a predominantly sexual mode of transmission (ICD-10 - Z11.3) Discussed STI risks, screenings that are available through [facility] and safe sex. Clt aware of lab processing times and how to view results on portal and how positive results will be communicated Need 2 out of 3 Sections from A-C Section A) Problems (only need one from below) Section B) Data (need at least one of the following categories in this section) Category 1: (Choose three of the following): Order Unique tests Section C) Risk (any one of the following) Prescription drug management (this counts for the whole section) 12/10/2024 Acute vaginitis (ICD-10 - N76.0) Reviewed BV findings and treatment options. No sexual activity during treatment and condom/barrier use encouraged following for at least a month for prevention. Genital hygiene practices reviewed. Need 2 out of 3 Sections from A-C Section A) Problems (only need one from below) Section B) Data (need at least one of the following categories in this section) Category 1: (Choose three of the following): Order Unique tests Section C) Risk (any one of the following) Prescription drug management (this counts for the whole section) 12/10/2024 Other problems related to lifestyle (ICD-10 - Z72.89) Need 2 out of 3 Sections from A-C Section A) Problems (only need one from below) Section B) Data (need at least one of the following categories in this section) Category 1: (Choose three of the following): Order Unique tests Section C) Risk (any one of the following) Prescription drug management (this counts for the whole section) Plan Of Treatment Medication Medication Name Sig Start Date Stop Date Notes MetroGel-Vaginal 0.75 % 1 application at bedtime Vaginal Once a day for 5 day(s) 12/10/2024 Treatment Notes Assessment Notes Encounter for screening for infections with a predominantly sexual mode of transmission Discussed STI risks, screenings that are available through [facility] and safe sex. Clt aware of lab processing times and how to view results on portal and how positive results will be communicated Acute vaginitis Reviewed BV findings and treatment options. No sexual activity during treatment and condom/barrier use encouraged following for at least a month for prevention. Genital hygiene practices reviewed. Next Appt Details Follow Up: prn, Reason: Progress Notes * Jazmine KINGaDOB:1995 (29 yo F)Acc No.[id number]:12/10/2024 Progress Notes Patient:?Coby KING Provider:?OLYA MICHEL :1995???Age:29 Y???Sex:Female D ate:12/10/2024 Address:[address] [place], [place] [id number] Subjective: * Chief Complaints: * ???Infection Screening * HPI: ???Visit Narrative:?Reason for the visit:?Possible infection.?Current form of control:?Mirena / withdrawal?.?Presenting Symptoms:?Yellow d/c 4x days. Denies?odor / frequency/ cramping/ dysuria.?LMP:?11/29/24.?Last date of UPI:?11/19/24.?Aptima Itching on Thur before menses then no itching from Sat until end of menses on the following Sat. On Sunday after menses discharge started. No itching or odor currently. No hx of vaginal infections. Ct hx at age 17yrs. No changes in sex partners. * ROS:?see HPI. * Medical History:? 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 control:?Mirena.?Last menstrual period:?11/29/24.?Last pap smear date:?05/2024 - NIL.?Menarche: ?Age of menarche?8 ???Periods:?Irregular per client.?Sexual activity:?currently sexually active, with men.?Sexually Transmitted Diseases (STDs):?Chlamydia.?Unprotected sex in the last 5 days?:?No.?Unprotected sex in the past 10 days?:?No.? * OB History:?Total pregnancies:?2.?Total living children:?2.? # 1:?normal spontaneous vaginal delivery ().? # 2:?normal spontaneous vaginal delivery ().? * Surgical History:?No Surgica l History documented. * Hospitalization/Major Diagno stic Procedure:?Child * Family History:? Mother/ Father - high blood pressure, high cholesterol. * Social History:?Food Access:?Food Access?The Client's current access to food is?Secure Food Access ???Housing:?Housing?The client's current living situation is:?stable housing ???Reproductive Life Plan:?Reproductive Life Plan?Do you want to have children??No, I don't want to have children ?How sure are you that you will be able to use your control method without any problems??Very sure ?People's plans change. Is it possible you or your partner could ever decide to become ??Yes ???Sexual History:?Sexual History?Sexual History Reviewed:?Partners, Practices, Protection/Past STIs ?Currently sexually active??Yes ?Your sexual activities include:?vaginal intercourse Per client no oral IC ?Do you use condoms??No ?Date of last unprotected intercourse:?11/19/2024 ?Number of partners in past 3 months:?1 ?Number of partners in past year:?1 ?Does your partner(s) currently have any STIs??No ???HIV Risk Assessment:?Additional Questions?Is an HIV Risk Assessment being conducted??No ???PrEP for HIV:?PrEP for HIV?Is the client interested in beginning/continuing PrEP for HIV??No ???Relationships:?Relationships?Has the client experienced any of the following:?Client has never experienced harmful relationships ???Human Trafficking:?Human Trafficking?Experienced:?No ???Tobacco Use:?Tobacco Use?Do you/have you used tobacco??No ?Tobacco Smoking Status?Unknown if ever smoked ???Drugs/Alcohol:?Drug/Alcohol Use?Do you or have you used drugs??No Per client ?Do you or have you used alcohol??Yes, currently Socially ???Counseling Provided:?Counseling Provided?Please indicate the length of time, in minutes, that counseling was provided.?7 ?Counseling Was Provided By:?lydper ???Aptima. * Medications:?TakingAlbuterol , Notes to Pharmacist: As neededUbrelvy Dupixent Aimovig Effexor Mirena , Notes to Pharmacist: 2021?Medication List reviewed and reconciled with the patientTaking Albuterol , Notes to Pharmacist: As neededTaking Ubrelvy Taking Dupixent Taking Aimovig Taking Effexor Taking Mirena , Notes to Pharmacist: 2021?Medication List reviewed and reconciled with the patient * Allergies:?Amoxicillinno[All ergies Verified] Objective: * Vitals:?BP:116/68mm Hg, Ht: 5'0 , Wt:161.2lbs, BMI:31.48Index, Ht-cm: 152.4, Wt- k.12. * Examination: ???General Examination: ?GENERAL APPEARANCE:?pleasant, in no acute distress.?NEUROLOGIC:? alert and oriented.? Assessment: * Assessment: 1.?Encounter for screening f or infections with a predominantly sexual mode of transmission - Z11.3 (Primary)???2.?Acute vaginitis - N76.0???3.?Other problems related to lifestyle - Z72.89??? Need 2 out of 3 Sections fro m A-C Section A) Problems (only need one from below) Section B) Data (need at least one of the following categories in this section) Category 1: (Choose three of the following): Order Unique tests Section C) Risk (any one of the following) Prescription drug management (this counts for the whole section) Plan: * Treatment: ? Value Reference Range ?Chlamydia by RHYS Negative Negati ve - * ?Gonococcus by RHYS Negative Negat nikki - * ?Trich vag by RHYS Negative Negati ve - * This lab was reviewed by DOLLY GREGG on 12/12/2024 at 11:13 AM EST Notes: Discussed STI risks, screenings that are available through [facility] and safe sex. Clt aware of lab processing times and how to view results on portal and how positive results will be communicated ??2.?Acute vaginitis? Start MetroGel-Vaginal Gel, 0.75 %, 1 application at bedtime, Vaginal, Once a day, 5 day(s), 1 Tube, Refills 0.?LAB: Wet Mount (Collection Date & Time - 12/10/2024)?BV positive* ? Value Reference Range ?Clue Cells pos * ?WBC pos * ?Hyphae neg * ?Trichomonas neg * ?pH 5.5 * ?NARESH Prep faint pos Notes: Reviewed BV findings and treatment options. No sexual activity during treatment and condom/barrier use encouraged following for at least a month for prevention. Genital hygiene practices reviewed. ?? * Procedure Codes:?73555 Wet M ount * Follow Up:?prn * Billing Information: * Visit Code:? 70213 Existing - Medium Complexity (IN USE). * Procedure Codes:? 28023 Wet Mount. * Sign off status: Completed true * Provider:ARON MICHEL Date:?12/10/2024 Generated for Niai paul/Phcu/Vicitting on:?03/05/2025 08:36 AM EDT History and Physical Notes * HPI (History of Present Illness) Category Sub-Category Detail Notes Category Not es Visit Narrative Reason for the visit: Possible infection Aptima Itching on Thur before menses then no itching from Sat until end of menses on the following Sat. On Sunday after menses discharge started. No itching or odor currently. No hx of vaginal infections. Ct hx at age 17yrs. No changes in sex partners Current form of control: Mirena / withdrawal Presenting Symptoms: Yellow d/c 4x days. Denies odor / frequency/ cramping/ dysuria LMP: 11/29/24 Last date of UPI: 11/19/24 Examination Category Sub-Category Detail Notes Category Not es General Examination GENERAL APPEARANCE: pleasant, in n o acute distress NEUROLOGIC: alert and oriented
--- OUTSIDE RECORDS SUMMARY | 2025-03-05 08:37 | XMS_ITS | Encounter Summary ---
Author Organization [facility] Address [address] [place] [address] Care Team Providers Care Chip Separator Name Role Phone Di Robertson MD Primary Care Provider Edison Thomas MD Primary Care Provider Misa ilLaura Thurston MD Primary Care Provider UnavailAbel Acosta MD Primary Care Provider Unav ailable Encounter Details Date Type Department Care Team Description 08/11/2019 Refill ACIDIZER HELPER - [address] [address] Sheridan Riggs CNM [address] [place] [address] Social History Tobacco Use Types [...] encounter Miscellaneous Notes * Telephone Encounter - Jeff Ahmadi MA. - 08/11/2019 11:27 AM EDTFrom: Coby Timmons To: Sheridan Riggs CNM Sent: 08/11/2019 10:32 AM EDT Subject: Medication Renewal Request Original authorizing provider: Sheridan Riggs CNM, CNM Zuleyka Dube would like a refill of the following medications: Drospiren-Eth Estrad-Levomefol 3-0.03-0.451 MG Tab [Sheridan Riggs CNM, CNM] Preferred pharmacy: [id number] - [place] - [address] [place] [address] AT Comment: documented in this encounter Plan of Treatment Not on file documented as of this encounter Visit Diagnoses Not on filedocumented in this encounter Care Teams Chip Separator Relationship Specialty Start Date End Date Di Robertson MD PCP - General Internal Medicine 05/08/18 11/30/19 Edison White MD PCP - General Internal Medicine 12/01/19 06/22/21 Laura Travis MD PCP - General Internal Medicine 06/23/21 06/17/24 Abel Huggins MD PCP - General Family Practice 06/18/24 documented as of this encounter
--- OUTSIDE RECORDS SUMMARY | 2025-03-05 08:37 | XMS_ITS | Encounter Summary ---
Author Organization [facility] Address [address] [place] [address] Care Team Providers Care Brazing Machine Operator Name Role Phone Crystal Peter MD Primary Care Provider Unava Di Hernandez MD Primary Care Provider Edison Thomas MD Primary Care Provider Unava fadiable Laura Travis MD Primary Care Provider Unavailab Abel Roberts MD Primary Care Provider Unav ailable Encounter Details Date Type Department Care Team Description 09/20/2017 Form Block Maker Notes Medical Records [address] [place] [id number] Abstract, Provider Social History Tobacco Use Types [...] on filedocumented in this encounter Care Teams Brazing Machine Operator Relationship Specialty Start Date End Date Crystal [...]
--- OUTSIDE RECORDS SUMMARY | 2025-03-05 08:37 | XMS_ITS | Encounter Summary ---
Author Organization [facility] Address [address] [place] [address] Phone Care Team Providers Care Computer Teacher Name Role Phone Crystal Peter MD Primary Care Provider [phone] Encounter Details Date Type Department Care Team (Late st Contact Info) Description 12/12/2013 Documentation [facility] Family Medicine [address] [place], [place] [id number] Family Medicine, Physician [address] [place], [place] [address] Social History Tobacco Use Types Packs/Day Years [...] on filedocumented in this encounter Care Teams Computer Teacher Relationship Specialty Start Date End Date Crystal Peter MD [address] [place] [address] [place] [address] PCP - General 07/06/17 02/25/23 documented as of this encounter
--- OUTSIDE RECORDS SUMMARY | 2025-03-05 08:37 | XMS_ITS | Encounter Summary ---
Author Organization [facility] Address [address] [place] [address] Care Team Providers Care Lip Cutter Name Role Phone Crystal Peter MD Primary Care Provider Unava Di Hernandez MD Primary Care Provider Edison Thomas MD Primary Care Provider Unava fadiable Laura Travis MD Primary Care Provider Unavailab Abel Roberts MD Primary Care Provider Unav ailable Encounter Details Date Type Department Care Team Description 09/13/2017 Application Processor Notes Medical Records [address] [place] [id number] Abstract, Provider Social History Tobacco Use Types [...] on filedocumented in this encounter Care Teams Lip Cutter Relationship Specialty Start Date End Date Crystal [...]
--- OUTSIDE RECORDS SUMMARY | 2025-03-05 08:37 | XMS_ITS | Encounter Summary ---
Author Organization [facility] Address [address] [place] [address] Phone Care Team Providers Care Delinquency Counselor Name Role Phone Crystal Peter MD Primary Care Provider [phone] Encounter Details Date Type Department Care Team (Late st Contact Info) Description 06/15/2014 Documentation [facility] Family Medicine [address] [place], [place] [phone] Family Medicine, Physician [address] [place], [place] [address] Social History Tobacco Use Types Packs/Day Years [...] on filedocumented in this encounter Care Teams Delinquency Counselor Relationship Specialty Start Date End Date Crystal Peter MD [address] [place] [address] [place] [address] PCP - General 07/06/17 02/25/23 documented as of this encounter
--- OUTSIDE RECORDS SUMMARY | 2025-03-05 08:37 | XMS_ITS | Encounter Summary ---
Author Organization [facility] Address [address] [place] [address] Care Team Providers Care Welder 2Nd Shift Name Role Phone Di Robertson MD Primary Care Provider Edison Thomas MD Primary Care Provider Laura Lewis MD Primary Care Provider Abel Mahmood MD Primary Care Provider Unav ailable Reason for Visit * Reason Comments E-prescribe Rx Request Encounter Details Date Type Department Care Team Description 09/15/2019 Refill SPANNER OPERATOR - [address] [address] Sheridan Riggs, BETTYE [address] [place] [address] E-prescribe Rx Request Social History Tobacco Use Types Packs/Day Years [...] encounter Miscellaneous Notes * Telephone Encounter - Jessika Cisneros - 09/15/2019 4:16 PM EDT WHEN WAS THE PATIENTS LAST ANNUAL SOFTWARE DESIGN ENGINEER EXAM? 08/26/19 Does patient have an upcoming appointment? No (THE MEDICATION REQUESTED IS ON THE MED LIST ABOVE) Did you check the Pharmacy information above?: YES Indicate how soon the patient needs the script: BY THE END OF THE DAY Patient would like script to be: E-PRESCRIBED/FAXED TO PHARMACY Is the doctor here today?: NO Can the message wait until the doctor returns?: NO Has the patient been told that the prescription will not be filled until the end of the day? NO Payor: [facility] [employer] / Plan: [facility] II $10/$18 / Product Type: HMO [id number] documented in this encounter Plan of Treatment Not on file documented as of this encounter Visit Diagnoses Diagnosis Hx of major depression Personal history of other mental disorder documented in this encounter Care Teams Welder 2Nd Shift Relationship Specialty Start Date End Date Di Robertson MD PCP - General Internal Medicine 05/08/18 11/30/19 Edison White MD PCP - General Internal Medicine 12/01/19 06/22/21 Laura Travis MD PCP - General Internal Medicine 06/23/21 06/17/24 Abel Huggins MD PCP - General Family Practice 06/18/24 documented as of this encounter
--- OUTSIDE RECORDS SUMMARY | 2025-03-05 08:37 | XMS_ITS | Encounter Summary ---
Author Organization [facility] Address [address] [place] [address] Care Team Providers Care Threader Operator Name Role Phone Laura Travis MD Primary Care Provider Unavailab Abel Roberts MD Primary Care Provider Unav ailable Encounter Details Date Type Department Care Team Description 10/05/2021 Pt. Non Urgent Medical Question OBGYN - [address] [facility] [address] [place] [address] Pamela Ramirez, [facility] [address] [place] [phone] Social History Tobacco Use Types Packs/Day Years [...] have Coronavirus / COVID-19? No / Unsure 10/06/2021 1:33 PM EST documented as of this encounter Plan of Treatment Not on file documented as of this encounter Visit Diagnoses Not on filedocumented in this encounter Care Teams Threader Operator Relationship Specialty Start Date End Date Laura Travis MD PCP - General Internal Medicine 06/23/21 06/17/24 Abel Huggins MD PCP - General Family Practice 06/18/24 documented as of this encounter
--- OUTSIDE RECORDS SUMMARY | 2025-03-05 08:37 | XMS_ITS | Patient Health Record ---
Author Organization [facility] Address [address] [place] [phone] Care Team Providers Care Apprentice Name Role Phone OLYA MICHEL [phone] Allergies Allergen (clinical drug ingredient) Drug/Non Drug [...] 11:13:11 AM Interpretation:Negative Performing Lab:[facility], [address], [address], [place], Phone - [phone], Director - [facility] Notes/Report: Chlamydia by RHYS Negative Negative Gonococcus by RHYS Negative Negative Trich vag by RHYS Negative Negative Reason For Referral No Information Medications Medication SIG (Take, Route, Frequency, Duration) Notes Start Date End Date Status Mirena 2021? Active Ubrelvy Active Dupixent Active Aimovig Active Effexor Active Albuterol As needed Active MetroGel-Vaginal 0.75 % 1 application at bedtime Vaginal Once a day for 5 day(s) 12/10/2024 Active Social History Sex Assigned At : Social History Observation Description Sex Assigned At Female Section Notes: Aptima Vital Signs Blood pressure diastolic 68 mm Hg 12/10/2024 Height 5'0 in 12/10/2024 Blood pressure systolic 116 mm Hg 12/10/2024 Weight 161.2 lbs 12/10/2024 BMI 31.48 kg/m2 12/10/2024 Encounters Encounter Location Date Provider Diagnosis [place] [facility] [address] [place], [place] [phone] 12/10/2024 OLYA MICHEL Encounter for scre ening for infections with a predominantly sexual mode of transmission Z11.3 ; Acute vaginitis N76.0 and Other problems related to lifestyle Z72.89 Assessments Encounter Date Diagnosis (ICD Code) Assessment Notes Treatment Notes Treatment Clinical Notes Section Notes 12/10/2024 Acute vaginitis (ICD-10 - N76.0) Reviewed [...] (this counts for the whole section) 12/10/2024 Encounter for screening for infections with [...] for the whole section) Plan Of Treatment No Information Insurance Providers Payer Name Payer Address Payer Phone Subscriber Number Group Number Insured Name Patient Relationship to Insured Coverage Start Date Coverage End Date [facility] [employer] [address] [address] [place], [place] [phone] [id number] Coby Timmons Self - patient is the insured Medical (General) History Medical History History ICD Code Migraines asthma Depression/anxiety Hospitalization History Reason Date(Month/Year) Child
--- OUTSIDE RECORDS SUMMARY | 2025-03-05 08:37 | XMS_ITS | Encounter Summary ---
Author Organization [facility] Address [address] [place] [address] Care Team Providers Care Legal Support Assistant Name Role Phone Edison White MD Primary Care Provider Laura Lewis MD Primary Care Provider Abel Mahmood MD Primary Care Provider Unav ailable Encounter Details Date Type Department Care Team Description 03/21/2021 Orders Only OBGYN - [facility] [address] [place] [address] Sheridan Riggs, [facility] [address] [place] [address] Social History Tobacco Use Types [...] have Coronavirus / COVID-19? No / Unsure 03/24/2021 3:30 PM EDT documented as of this encounter Plan of Treatment Not on file documented as of this encounter Visit Diagnoses Not on filedocumented in this encounter Care Teams Legal Support Assistant Relationship Specialty Start Date End Date Edison White MD PCP - General Internal Medicine 12/01/19 06/22/21 Laura Travis MD PCP - General Internal Medicine 06/23/21 06/17/24 Abel Huggins MD PCP - General Family Practice 06/18/24 documented as of this encounter
--- OUTSIDE RECORDS SUMMARY | 2025-03-05 08:37 | XMS_ITS | Encounter Summary ---
Author Organization [facility] Address [address] [place] [address] Care Team Providers Care Clinical Therapist Name Role Phone Di Robertson MD Primary Care Provider Edison Thomas MD Primary Care Provider Unava ilLaura Thurston MD Primary Care Provider Abel Mahmood MD Primary Care Provider Unav ailable Reason for Visit * Reason Comments E-prescribe Rx Request Encounter Details Date Type Department Care Team Description 09/05/2018 Refill PAINT BOOTH OPERATOR - [address] [address] Sheridan Riggs CNM [address] [place] [address] E-prescribe Rx Request Social History [...] disorder documented in this encounter Care Teams Clinical Therapist Relationship Specialty Start Date End Date Di Robertson MD PCP - General Internal Medicine 05/08/18 11/30/19 Edison White MD PCP - General Internal Medicine 12/01/19 06/22/21 Laura Travis MD PCP - General Internal Medicine 06/23/21 06/17/24 Abel Huggins MD PCP - General Family Practice 06/18/24 documented as of this encounter
--- OUTSIDE RECORDS SUMMARY | 2025-03-05 08:37 | XMS_ITS | Encounter Summary ---
Author Organization [facility] Address [address] [place] [address] Phone Care Team Providers Care Deputy Chief Counsel Name Role Phone Crystal Peter MD Primary Care Provider [phone] Encounter Details Date Type Department Care Team (Late st Contact Info) Description 07/12/2017 Conversion Encounter [facility] [address] [place] [address] Social History Tobacco Use Types Packs/Day Years [...] on filedocumented in this encounter Care Teams Deputy Chief Counsel Relationship Specialty Start Date End Date Crystal Peter MD [address] [place] [address] PCP - General 07/06/17 02/25/23 documented as of this encounter
--- OUTSIDE RECORDS SUMMARY | 2025-03-05 08:38 | XMS_ITS | Encounter Summary ---
Author Organization [facility] Address [address] [place] [address] Care Team Providers Care Developer Analyst Name Role Phone Edison White MD Primary Care Provider Laura Lewis MD Primary Care Provider Unavailab Abel Roberts MD Primary Care Provider Unav ailable Encounter Details Date Type Department Care Team Description 07/12/2020 Refill OBGYN - [place] [address] [place] [address] [facility] [address] [place] [address] Social History Tobacco Use Types Packs/Day Years [...] on filedocumented in this encounter Care Teams Developer Analyst Relationship Specialty Start Date End Date Edison White MD PCP - General Internal Medicine 12/01/19 06/22/21 Laura Travis MD PCP - General Internal Medicine 06/23/21 06/17/24 Abel Huggins MD PCP - General Family Practice 06/18/24 documented as of this encounter
--- OUTSIDE RECORDS SUMMARY | 2025-03-05 08:38 | XMS_ITS | Encounter Summary ---
Author Organization [facility] Address [address] [place] [address] Care Team Providers Care Public Health Training Assistant Name Role Phone Edison White MD Primary Care Provider Laura Lewis MD Primary Care Provider UnavailAbel Acosta MD Primary Care Provider Unav ailable Encounter Details Date Type Department Care Team Description 11/23/2020 Pt. Non Urgent Medical Question Adult Medicine [address] [address] Caro Richardson FNP [address] [place] [address] Social History Tobacco Use Types Packs/Day Years Used Date Smoking Tobacco: Never Smokeless Tobacco: Never Alcohol Use Standard Drinks/Week Comments No 0 (1 standard drink = 0.6 oz pur e alcohol) Sex Assigned at Date Recorded Not on file Job Start Date Occupation Industry Not on file Not on file Not on file documented as of this encounter Progress Notes * Nancie Barrera M.A. - 11/23/2020 11:44 AM ESTFrom: Coby Timmons To: JANUSZ Robertson Sent: 11/23/2020 8:51 AM EST Subject: Medication Hello i have been on zoloft 50mg for over 3 years and recently my surgical rn increased it to 75mg because 50mg was no longer helping me. i have been on the 75mg for 3 weeks and nikki been experiencing ticks on my right side and right hand numbness and tingling. i did inform my surgical rn about this who advise to decrease ba ck to 50mg and to speak to you about possibly changing to a different medication. i am waiting to hear back for a thearpy appt with [facility]. i Just wanted to see if anything could be done in the mean time. thanks documented in this encounter Plan of Treatment Not on file documented as of this encounter Visit Diagnoses Not on filedocumented in this encounter Care Teams Public Health Training Assistant Relationship Specialty Start Date End Date Edison White MD PCP - General Internal Medicine 12/01/19 06/22/21 Laura Travis MD PCP - General Internal Medicine 06/23/21 06/17/24 Abel Huggins MD PCP - General Family Practice 06/18/24 documented as of this encounter
--- OUTSIDE RECORDS SUMMARY | 2025-03-05 08:38 | XMS_ITS | Encounter Summary ---
Author Organization [facility] Address [address] [place] [address] Care Team Providers Care Geographic Information Systems Director Name Role Phone Edison White MD Primary Care Provider Laura Lewis MD Primary Care Provider Unavailab Abel Roberts MD Primary Care Provider Unav ailable Encounter Details Date Type Department Care Team Description 08/03/2020 Pt. Non Urgent Medical Question OBGYN - [address] [facility] [address] [place] [id number] Ramirez Pamela, [facility] [address] [place] [address] Social History Tobacco Use Types [...] on filedocumented in this encounter Care Teams Geographic Information Systems Director Relationship Specialty Start Date End Date Edison White MD PCP - General Internal Medicine 12/01/19 06/22/21 Laura Travis MD PCP - General Internal Medicine 06/23/21 06/17/24 Abel Huggins MD PCP - General Family Practice 06/18/24 documented as of this encounter
--- OUTSIDE RECORDS SUMMARY | 2025-03-05 08:38 | XMS_ITS | Encounter Summary ---
Author Organization [facility] Address [address] [place] [address] Care Team Providers Care Sanitary Landfill Operator Name Role Phone Edison White MD Primary Care Provider Laura Lewis MD Primary Care Provider UnavailAbel Acosta MD Primary Care Provider Unav ailable Encounter Details Date Type Department Care Team Description 07/12/2020 Pt. Non Urgent Medic al Question OBGYN - [place] [address] [place] [address] Rinku Jesus CNM [address] [place] [address] Social History Tobacco Use Types Packs/Day Years [...] Telephone Encounter - Char Dobbs R.N. - 07/12/2020 2:29 PM EDTFrom: Coby Timmons To: Rinku Jesus CNM Sent: 07/12/2020 2:23 PM EDT Subject: Menses Hello, last time i was in the office you had switched mg control since i was having irregular periods while being on my old control. You had advised to give the new control some time. i osorio the last week of my 3rd pack and i still havent seen any improvement. i am starting my period the week before im suppose to get it. I wasnt sure if i should give it another month. documented in this encounter Plan of Treatment Not on file documented as of this encounter Visit Diagnoses Not on filedocumented in this encounter Care Teams Sanitary Landfill Operator Relationship Specialty Start Date End Date Edison White MD PCP - General Internal Medicine 12/01/19 06/22/21 Laura Travis MD PCP - General Internal Medicine 06/23/21 06/17/24 Abel uHggins MD PCP - General Family Practice 06/18/24 documented as of this encounter
--- NOTE | 2025-03-05 08:53 | A.OFFVIS_ITS ---
Vital Signs 03/05/25 08:56 Height 5 ft Weight 264 lb BMI 51.6 Intake Visit Reasons: Follow Up 6mo Allergies amoxicillin [AMOXICILLIN] Allergy (Unknown, Verified 03/05/25 08:55) UNKNOWN, hives Seasonal Allergies Allergy (Unknown, Verified 03/05/25 08:55) Hives Medication List - Last Reconciled 03/05/25 by Salima Sarkar, [employer] albuterol sulfate 90 mcg/actuation (ProAir HFA) 1 - 2 puffs inhalation Q4-6H PRN clonidine HCl 0.1 mg PO BEDTIME dupilumab (Dupixent) mg subcut Q2W epinephrine IM erenumab-aooe (Aimovig Autoinjector) 140 mg subcut ONCE 30 days levonorgestrel (Mirena) intrauterine rizatriptan 5 - 10 mg (0.5 - 1 x 10 mg) PO Q2H PRN 21 days triamcinolone acetonide 0.1% 1 appl topical DAILY Ubrelvy (ubrogepant) 50 - 100 mg (0.5 - 1 x 100 mg) PO ONCE PRN 30 days NS venlafaxine ER (Effexor XR) 75 mg PO DAILY HPI Comments Details: 30-yr-old female presents for f/u visit. Pt has been working w/ psychiatry to help manage her anxiety and has been undergoing med trials for sleep. Stopped clonidine. Tried trazodone however it caused headaches, so it was stopped. HST was inconclusive. Endorses some snoring, unrefreshing sleep, fatigue, daytime sleepiness, sleep maintanence difficulties. Denies restless legs, leg cramps. May wake up at night with bilateral hand numbness- has a remote h/o carpal tunnel syndrome s/s which resolved after she stopped working in the [employer]. No weakness. Has not had wrist splints in a long time. Migraines are stable. Typically having 1-2 migraines per month. Rizatriptan can be helpful but it is not always effective. Ubrelvy continues to be effective. Has not had any neck pain in a while. Baseline headache characteristics: Severe. Usually an aching pain in the left frontal to right frontal and into right face. Can be in pressure in the back of head as well. These occur together. A/w photophobia, phonophobia, (usually osmophobic d/t nasal polyps), nausea, brain fog, and fatigue. Denies paresthesias, autonomic, or focal weakness. 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 Current occupational exposures/hazards: No Cognitive needs: No Hearing needs: No Vision needs: No Physical Exam Vital Signs: BMI result Body Mass Index 51.6 Const General: cooperative and no acute distress Orientation/consciousness: patient oriented x3 Resp Effort & Inspection: normal respiratory effort and able to speak in complete sentences Neuro General: patient oriented x3 Cranial nerves: Yes CN's II-XII intact bilaterally Cognition (Neuro): normal cognition Psych Appearance: grossly normal Mental Status: mental status grossly normal Speech and movement: Normal speech and movement present Affect: normal affect Attitude: cooperative Assessment & Plan Assessment & Plan (1) Migraine without aura: Code(s): G43.009 - Migraine without aura, not intractable, without status migrainosus Category: Medical Qualifiers: Status migrainosus presence: without status migrainosus Intractability: intractable Qualified Code(s): G43.019 - Migraine without aura, intractable, without status migrainosus (2) Excessive daytime sleepiness: Code(s): G47.19 - Other hypersomnia Category: Medical (3) Snoring: Code(s): R06.83 - Snoring Category: Medical (4) Sleep difficulties: Code(s): G47.9 - Sleep disorder, unspecified Category: Medical Plan For sleep difficulties: HST inconclusive Patient advised to undergo in-lab PSG to further assess. For overall headache management: Continue to optimize good self-care, including but not limited to maintaining a healthy diet, adequate fluid intake, adequate sleep, and engaging in regular physical activity. Track headaches. ? For right neck-mastoid pain- If recurs, trial Rizatriptan. Future considerations- c-spine imaging, PT. ? For acute headache treatment: Continue Rizatriptan 5-10mg prn. Continue Ubrogepant (Ubrelvy) 100mg tab, 1/2 - 1 tab (50-100mg) at onset of headache, may repeat in 2 hours. Max of 2 tabs (200mg) per 24 hours. May adjunct with OTC Tylenol 650mg q 4 hours, Ibuprofen 600mg q 6 hours, or Naproxen 440mg q 12 hrs prn. Trial using Ubrelvy inplace of Rizatriptan (as Ubrelvy does not have risk for inducing medication overuse headache) starting 1 day prior to onset of end of Aimovig cycle breakthrough migraine- may continue up to 3-4 days. Previous acute migraine medication trials: Sumatriptan- sweating and head on fire sensation. Acute migraine medication contraindications: None at the time ? For headache prevention medication: Continue Riboflavin 400mg qam Continue Magnesium 400mg every other/every 3rd night-may hold for loose stools Continue Aimovig 140mg sc q month. Previous migraine prevention medication trials: Amitriptyline 20mg qhs- ineffective and not tolerated. Lamotrigine- used for mood- caused worsening migraines and ? RUE muscle twitching. Migraine prevention medication contraindications: BBS d/t symptomatic asthma dx. ? f/u in 6 months or sooner prn. Orders: Orders RT PSG in-lab sleep study 03/05/25 G47.19 - Other hypersomnia, R06.83 - Snoring, G47.9 - Sleep disorder, unspecified Medications: Refilled Ubrelvy (ubrogepant) take at onset of migraine, may repeat in 2hrs (may take w/ Ibuprofen) 50 - 100 mg (0.5 - 1 x 100 mg) PO ONCE PRN 10 tabs 6RF migraine headache 30 days NS Discontinued rizatriptan max 2 tabs per day or 4 tabs per week Discontinued Reason: Doctor's Order 5 - 10 mg (0.5 - 1 x 10 mg) PO Q2H 21 days PRN 12 tabs 6RF migraine headache Coding Level of Care Code Est Pt Level 4 (60537) Diagnoses Intractable migraine without aura and without status migrainosus G43.019 Status migrainosus presence: without status migrainosus Intractability: intractable Excessive daytime sleepiness G47.19 Snoring R06.83 Sleep difficulties G47.9
[2025-03-05 08:56] VITALS: BMI 51.6
== END 2025-03-05 09:25 | disposition home or self-care (01) ==
LOC: HO.HSMS 08:27
PROVIDERS: PCP Internal Medicine; Visit Provider Nurse Practitioner Family
DX: G43.019 Migraine without aura, intractable, without status migrainosus (principal); G47.19 Other hypersomnia; R06.83 Snoring; G47.9 Sleep disorder, unspecified
CPT/HCPCS: 99214

== ENCOUNTER → 2025-03-05 08:26 | Outpatient (BNVA) | payer OTHER, SELFPAY | PROVIDERS: PCP Internal Medicine; Visit Provider Nurse Practitioner Family | DX: G43.019 Migraine without aura, intractable, without status migrainosus (principal); G47.19 Other hypersomnia; R06.83 Snoring | CPT/HCPCS: 99212 ==

== ENCOUNTER → 2025-04-08 20:30 | Outpatient (REF) | payer OTHER, SELFPAY | LOC: HO.SL 20:30 | PROVIDERS: PCP Internal Medicine; Visit Provider Nurse Practitioner Family | DX: G47.19 Other hypersomnia (principal); R06.83 Snoring; G47.9 Sleep disorder, unspecified | CPT/HCPCS: 95810 ==

== ENCOUNTER → 2025-04-08 20:56 | Outpatient (BNV) | payer OTHER, SELFPAY | PROVIDERS: PCP Internal Medicine; Visit Provider Psychiatry & Neurology Neurology | DX: G47.9 Sleep disorder, unspecified (principal); R06.83 Snoring | CPT/HCPCS: 95810 ==

== ENCOUNTER 2025-07-21 08:19 | Outpatient (AMB) | payer OTHER, SELFPAY ==
--- NOTE | 2025-07-21 08:28 | A.OFFPC_ITS ---
Vital Signs 07/21/25 08:32 Height 5 ft Weight 169 lb 2 oz BMI 33.0 BP 106/72 Blood Pressure Location Lt brachial Position Sitting Respiration 12 Pulse 104 H Pulse Source Pulse Oximeter Temp 98.7 F Temp Source Oral Pulse Oximetry (%) 99 Oxygen Delivery Method Room Air Intake Visit Reasons: CPE Intake Note: Physical Slat Grader Required: No Allergies amoxicillin (AMOXICILLIN) Allergy (Unknown, Verified 07/21/25 08:30) UNKNOWN, hives Seasonal Allergies Allergy (Unknown, Verified 07/21/25 08:30) Hives Tobacco use date assessed: 07/21/25 Dental Screening Dental Screen Date: 07/21/25 Did you have a dental visit in the last 12 months?: Yes Did you have a dental problem in the last 6 months where you did not have access to dental care?: No Was dental information given to patient?: Patient has dentist HPI HPI Comments History of Present Illness Details 30 year old female with a past medical h istory of anxiety, depression, migraines presenting for annual exam [facility], clonidine [facility]. Gets allergy shots. History of PNA. She gets reddening and burning of the face after exercise or sweating Neurology: Following with [facility], Dr Sarkar. 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 Says she is up to date Tdap 2020/2021. Daughter is 3 ROS CONSTITUTIONAL: Denies weight loss, fever and chills. HEENT: Denies changes in vision and hearing. RESPIRATORY: Denies SOB and cough. CV: Denies palpitations and CP GI: Denies abdominal pain, nausea, vomiting and diarrhea. : Denies dysuria and urinary frequency. MSK: Denies new myalgia and joint pain. SKIN: see HPI NEUROLOGICAL: Denies headache PSYCHIATRIC: Denies recent changes in mood. PHYSICAL EXAM: GENERAL: Alert and oriented x 3. NAD EYES: EOMI. Anicteric. HENT: Moist mucous membranes. No scleral icterus. No cervical lymphadenopathy. LUNGS: Clear to auscultation bilaterally. CARDIOVASCULAR: Regular rate and rhythm. No murmur. No JVD. ABDOMEN: Soft, non-tender +bs EXTREMITIES: No edema. Non-tender. SKIN: No rashes or lesions. Warm. NEUROLOGIC: No focal neurological deficits. CN II-XII grossly intact PSYCHIATRIC: Cooperative. Appropriate mood and affect [facility] Medical History Depression Nasal polyps Asthma Surgical History History of lumpectomy of right breast Family History Paternal Grandmother Cancer Colon cancer Mother Hypertension Hypercholesteremia Arthritis FH: mental illness Substance abuse Father Diabetes History of heart attack Hypertension FH: mental illness Substance abuse Sister Asthma Social History Housing: House Alcohol intake: current Patient Tobacco Use Status: Never used Tobacco e-Cigarette/Vaping Use: Never Used Second Hand Smoke Exposure: No service: No Current occupational status: employed 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 1. Little interest or pleasure in doing things: several days 2. Feeling down, depressed, or hopeless: several days 3. Trouble falling or staying asleep, or sleeping too much: nearly every day 4. Feeling tired or having little energy: several days 5. Poor appetite or overeating: not at all 6. Feeling bad about yourself - or that you are a failure or have let yourself or your family down: not at all 7. Trouble concentrating on things, such as reading the newspaper or watching television: not at all 8. Moving or speaking so slowly that other people could have noticed. Or the opposite - being so fidgety or restless that you have been moving around a lot more than usual: several days 9. Thoughts that you would be better off or of hurting yourself in some way: not at all Total score: 7 Depression Screening Interpretation: Positive Depression Screening Done: Yes 99005 - PHQ-9 Billing: Yes Source: Developed by Drs. Ajith Hernandez, Kirstie Garcia, Jamari Ribera and colleagues, with an educational guillermina from [employer]. Thrive Questionnaire Date Thrive assessed: 07/14/25 I am a: Patient What is your living situation today?: I have a steady place to live Within the past 12 months, did the food you bought not last and you didn't have the money to get more?: Never true Within the past 12 months, did you worry whether your food would run out before you got money to buy more?: Never true Do you have trouble paying for medicines?: No Do you have trouble getting transportation to medical appointments?: No Do you have trouble paying your heating and electricity bill?: No Do you have trouble taking care of your child, family member or friend?: No Do you have trouble with day-to-day activities such as bathing, preparing meals, shopping, managing finances, etc.?: No Are you currently unemployed and looking for a job?: No Are you interested in more education?: No Please select the resources that you would like help with: None Currently or been in a relationship where the following occur: No concerns reported THRIVE Score: 0 AUDIT C Alcohol Use Questionnaire (AUDIT-C) 1. How often do you have a drink containing alcohol?: Monthly or less 2. How many drinks containing alcohol do you have on a typical day when you are drinking?: 1 or 2 3. How often do you have six or more drinks on one occasion?: Never Total Score: 1 DRE-7 AMB Questionnaire DRE-7 Date DRE - 7 assessed: 07/21/25 Feeling nervous, anxious, or on edge: 1 = Several days Not being able to stop or control worryin = Several days Worrying too much about different things: 1 = Several days Trouble relaxin = Several days Being so restless that it is hard to sit still: 1 = Several days Becoming easily annoyed or irritable: 1 = Several days Feeling afraid as if something awful might happen: 0 = Not at all Total DRE-7 score (0-4 normal; 5-9 mild; 10-14 moderate; 15-21 severe): 6 Source: Developed by Drs. Ajith Hernandez, Kirstie Garcia, Jamari Ribera and colleagues, with an educational guillermina from [employer]. DRE-7 Assessment Billing DRE-7 Assessment Tool: DRE-7 Assessment 82303 Physical exam (Primary Care) Vital Signs: Last Vital Signs Temp 98.7 F 07/21/25 08:32 Pulse 104 H 07/21/25 08:32 Resp 12 07/21/25 08:32 BP 106/72 07/21/25 08:32 Pulse Ox 99 07/21/25 08:32 Oxygen Delivery Method Room Air 07/21/25 08:32 BMI result Body Mass Index 33.0 Tobacco/Smoking Status: Tobacco use Status Tobacco use date assessed 07/21/25 07/21/25 08:35 Patient Tobacco Use Status Never used Tobacco 07/21/25 08:32 e-Cigarette/Vaping Use Never Used 07/21/25 08:32 PHQ-9: PHQ-9 Score PHQ-9: Total score 7 07/21/25 08:42 Depression Screening Interpretation: Positive Thrive Assessment: Date of Thrive Assessment Date Thrive assessed 07/14/25 07/21/25 08:30 Currently or been in a relationship where the following occur: No concerns reported Coding Level of Care Code Est Pt Prev Care 18-39y(19564) Diagnoses Physical exam Z00.00 Erythromelalgia I73.81 Additional Codes DRE-7 Assessment Billing - DRE-7 Assessment Tool: DRE-7 Assessment 02501 ([id number]) PHQ-9 - 78065 - PHQ-9 Billing: Yes ([id number]) Assessment & Plan Assessment & Plan (1) Physical exam: Code(s): Z00.00 - Encounter for general adult medical examination without abnormal findings Category: Medical (2) Erythromelalgia: Code(s): I73.81 - Erythromelalgia Category: Medical Plan 30 year old female presenting for CPE Interval history reviewed Discussed Erythromelalgia. Trial doxepin topical. She can discuss with allergy Chronic medical conditions are stable. Medications: New doxepin 5% 1 appl topical Q6H 45 grams 1RF
--- OUTSIDE RECORDS SUMMARY | 2025-07-21 08:29 | XMS_ITS | Encounter Summary ---
Author Organization [facility] Address [address] [place] [address] Phone Care Team Providers Care Metal Finish Inspector Name Role Phone Crystal Peter MD Primary Care Provider [phone] Encounter Details Date Type Department Care Team (Late st Contact Info) Description 03/27/2012 Documentation [facility] [place] [facility] [address] [place], [place] [id number] Family Medicine, Physician [address], [place] [id number] Social History Tobacco Use Types Packs/Day Years [...] on filedocumented in this encounter Care Teams Metal Finish Inspector Relationship Specialty Start Date End Date Crystal Peter MD [address] [place] [address] [place] [address] PCP - General 07/06/17 02/25/23 documented as of this encounter
--- OUTSIDE RECORDS SUMMARY | 2025-07-21 08:29 | XMS_ITS | Encounter Summary ---
Author Organization [facility] Address [address] [place] [address] Care Team Providers Care Pattern Painter Name Role Phone Crystal Peter MD Primary Care Provider Di Figueroa MD Primary Care Provider Edison Thomas MD Primary Care Provider Unava Laura Sutherland MD Primary Care Provider UnavailAbel Acosta MD Primary Care Provider Unav ailable Encounter Details Date Type Department Care Team Description 07/18/2017 Orders Only HEALTH PROMOTION EDUCATOR - [address] [phone] Kaylin Brown CNM Metrorrhagia Social History Tobacco [...] Metrorrhagia documented in this encounter Care Teams Pattern Painter Relationship Specialty Start Date End Date Crystal Peter MD PCP - General 08/30/09 05/07/18 Di Robertson MD PCP - General Internal Medicine 05/08/18 11/30/19 Edison White MD PCP - General Internal Medicine 12/01/19 06/22/21 Laura Trvais MD PCP - General Internal Medicine 06/23/21 06/17/24 Abel Huggins MD PCP - General Family Practice 06/18/24 documented as of this encounter
--- OUTSIDE RECORDS SUMMARY | 2025-07-21 08:29 | XMS_ITS | Encounter Summary ---
Author Organization [facility] Address [address] [place] [address] Care Team Providers Care Payroll Services Analyst Name Role Phone Laura Travis MD Primary Care Provider Abel Mahmood MD Primary Care Provider Unav ailable Encounter Details Date Type Department Care Team Description 05/19/2022 Pt. Non Urgent Medical Question OBGYN - [address] [facility] [address] [place] [address] Candy Ramirez CNM [address] [place] [address] Social History Tobacco Use Types [...] on filedocumented in this encounter Care Teams Payroll Services Analyst Relationship Specialty Start Date End Date Laura Travis MD PCP - General Internal Medicine 06/23/21 06/17/24 Abel Huggins MD PCP - General Family Practice 06/18/24 documented as of this encounter
--- OUTSIDE RECORDS SUMMARY | 2025-07-21 08:29 | XMS_ITS | Encounter Summary ---
Author Organization [facility] Address [address] [place] [address] Phone Care Team Providers Care Cable Installation Manager Name Role Phone Crystal Peter MD Primary Care Provider [phone] Encounter Details Date Type Department Care Team (Late st Contact Info) Description 03/25/2012 Documentation [facility] [place] [address] [place], [place] [phone] Family Medicine, Physician [address] [place], [place] [phone] Social History Tobacco Use Types Packs/Day Years [...] on filedocumented in this encounter Care Teams Cable Installation Manager Relationship Specialty Start Date End Date Crystal Peter MD [address] [place] [address] [place] [id number] PCP - General 07/06/17 02/25/23 documented as of this encounter
--- OUTSIDE RECORDS SUMMARY | 2025-07-21 08:29 | XMS_ITS | Encounter Summary ---
Author Organization [facility] Address [address] [place] [address] Care Team Providers Care Hvac Designer Name Role Phone Laura Travis MD Primary Care Provider Unavailab Abel Roberts MD Primary Care Provider Unav ailable Encounter Details Date Type Department Care Team Description 05/31/2022 Pt. Non Urgent Medical Question OBGYN - 271 [facility] [address] [place] [address] Pamela Ramirez, [facility] 175 [place] [phone] Social History Tobacco Use Types Packs/Day Years [...] on filedocumented in this encounter Care Teams Hvac Designer Relationship Specialty Start Date End Date Laura Travis MD PCP - General Internal Medicine 06/23/21 06/17/24 Abel Huggins MD PCP - General Family Practice 06/18/24 documented as of this encounter
--- OUTSIDE RECORDS SUMMARY | 2025-07-21 08:29 | XMS_ITS | Encounter Summary ---
Author Organization [facility] Address [address] [place] [address] Phone Care Team Providers Care Plant General Manager Name Role Phone Crystal Peter MD Primary Care Provider [phone] Encounter Details Date Type Department Care Team (Late st Contact Info) Description 03/28/2012 Documentation [facility] [place] [address] [place], [place] [phone] Family Medicine, Physician [address] [place], [place] [address] Social History Tobacco Use Types Packs/Day Years [...] on filedocumented in this encounter Care Teams Plant General Manager Relationship Specialty Start Date End Date Crystal Peter MD [address] [place] [address] [place] [address] PCP - General 07/06/17 02/25/23 documented as of this encounter
--- OUTSIDE RECORDS SUMMARY | 2025-07-21 08:29 | XMS_ITS | Clinical Summary ---
Author Organization [facility] Address [address] [place] [address] Care Team Providers Care Damage Assessor Name Role Phone Abel Huggins MD Primary [...] of 3 - 19+ 3-dose series) 02/10/2012 HIV Screening 10/25/2022 Hepatitis C Screening 10/25/2022 Social Influencers of Health Screening 10/25/2022 COVID-19 Vaccine (3 - 2023-2 5 season) 2024 01/09/2021, 12/19/2020 Depression Screening 11/26/2024 Influenza Vaccine (#1) 2025 08/18/2021 Cervical Cancer Screening: P ap [...] 5 Years) and At-Risk Patients (6 to 49 Years) Aged Out No longer eligible b [...] RESULTING AGENCY - 06/24/2024 4:50 PM EDT [id number] THINPREP PAP, IMAGED: NEGATIVE FOR SQUAMOUS INTRAEPITHELIAL LESION AND MALIGNANCY . REACTIVE CELLULAR CHANGES. ABUNDANT RED BLOOD CELLS ARE PRESENT. NOTE: ADEQUACY DEEMED SATISFACTORY AFTER REPROCESSING WITH ACID WASH PROCEDURE. CHIO RODRIGUEZ M.D. , PATHOLOGIST (CASE ELECTRONICALLY SIGNED 06 24 2024) RESULT OF APTIMA HIGH RISK HPV ASSAY: HIGH RISK HPV: NEGATIVE (SEROTYPES 16,18,31,33,35,39,45,51,52,56,58,59,66,68) COMPLETED ON 2024-06-23 ADEQUACY: SATISFACTORY ENDOCERVICAL/TRANSFORMATION ZONE COMPONENT PRESENT. SOURCE: THINPREP PAP HPV ANY DX: REFLEX 16 AND 18, CERVICAL, IMAGED CLINICAL INFORMATION: THINPREP ANY, LMP 06/17/24, PAP HX NEGATIVE 2019, [Z01.419] Pamela Ramirez [facility] CYTOLOGY ORDERABLES Final Result HISTORICAL TESTING LAB RESULTING AGENCY from Last 3 Months or Most Recently Relevant to Health Maintenance Care Teams Damage Assessor Relationship Specialty Start Date End Date Abel Huggins MD [address] [place] [address] Dr Jonel [place] PCP - General 06/18/24
--- OUTSIDE RECORDS SUMMARY | 2025-07-21 08:29 | XMS_ITS | Clinical Summary ---
Author Organization [facility] Address [address] [place] [address] Care Team Providers Care Fast Foods Worker Name Role Phone Abel Huggins MD Primary Care Provider Unav ailable Allergies Active Allergy Reactions Severity Noted Date Comments Augmentin Rash/Dermatitis,Itching/Pruritus Low 04/2009 Medications Medication Sig Dispensed Refills Start Date End Date Status fexofenadine 180 MG tablet Take 180 mg by mouth daily. 0 Active ALBUTEROL SULFATE 108 (90 Base) MCG/ACT Aero Soln INHALE 1 TO 2 PUFFS EVERY 4 TO 6 HOURS NEEDED 0 12/07/2020 Active Active Problems Problem Noted Date Anxiety and depression 03/31/2021 Overview: Pt seens weekly therapist in [place] She was on zoloft x 5 yrs but developed neuro sx so d/c and started on prozac 20mg daily a little over a month ago. Doing well. Pt remains on Prozac cat C and though no long tem effects of SSRI's/SNRI's hav been shown, RON is possible especialy if taken in the late 3rd trimeseter. It is typically evident within the first 48-72 hrs. She currently denies any SI/HI. She receives services thru [address], though has ? met with psychiatrist yet. Currently benfefits outweight the risk and pt will cont on current Environmental allergies 03/31/2021 Overview: Pt sees an refrigeration manager. She is currently on sal[place] and singulair. She was advised to contact and inform them of She normally gets allergy shots Migraine 12/02/2019 Resolved Problems Problem Noted Date Resolved Date Abnormal finding on urinalysis 09/17/2021 1 01/16/2021 Overview: Treated in triage 09/16/2021 for suspected UTI with Macrobid pending urine culture results Supervision of other normal 03/31/2021 11/15/2021 Overview: 1. [facility] site: [address], [address] 2. Delivery site: [facility] 3. Mobile Mommas:No 4. Dating criteria: LMP confirmed by 1st trimester ultrasound 5. Blood type: Lab Results Component Value Date BLDTYPE A POSITIVE 04/11/2021 6. Genetic screening: Date: Result: First screen Negative, AFP screen __NEGATIVE___ 6. GBS: Negative Date: 10/01/21 7. FOB name: Abel Muse 8. Plans A. Epidural or other pain management - B. Labor support identified - C. Tdap - Date:,09/01/2021 Flu - Date: 08/18/2021 COVID vaccine - yes D. Breast or Bottle feed: bottle E. Baby's name - Rhonda LOPEZ F. Circumcision - 06/09/2021 Second trimester survey @ 20w3d wnl and adequate growth. No further follow up indicated. 9. Hospital Course: Vitamin D deficiency 12/02/2019 03/31/2021 Immunizations Name Administration Dates Next Due COVID-19 (Pfizer) Pt Reported 01/09/2021, 021 Influenza Vaccine-preservati ve Free-quadrivalent 4 Years 08/18/2021 Tdap 09/01/2021,07/08/2015 09/01/2031 Family History Medical History Relation Name Comments COPD Father heart disease Father Cancer of the Prostate Maternal Grandfather Hypertension Maternal Grandmother Arthritis Mother high cholestrol Mother Cancer of the Colon Paternal Grandmother age 50 CA Breast Negative Hx CA Ovarian Negative Hx Relation Name Status Comments Father Maternal [...] file Not on file Not on file Last Filed Vital Signs Vital Sign Reading Time Taken Comments Blood Pressure 111/81 06/19/2024 9:47 AM EDT Pulse 89 06/19/2024 9:47 AM EDT Temperature 37.2 C (98.9 F) 08/25/2021 10:10 AM EDT Respiratory Rate 16 03/24/2021 3:43 PM EDT Oxygen Saturation 97% 08/25/2021 10:10 AM EDT Inhaled Oxygen Concentration - - Weight 73 kg (161 lb) 06/19/2024 9:47 AM EDT Height 152.4 cm (5') 06/19/2024 9:47 AM EDT Body Mass Index 31.44 06/19/2024 9:47 AM EDT Plan of Treatment Health Maintenance Due Date Last Done Comments BASELINE HEALTH EXAM 18-39 02/10/2012 CHOLESTEROL SCREENING 2013 Covid-19 Vaccine (2022- 4 season) 2024 11/30/2021, 01/09/2021, 12/19/2020 BMI CHECK/ADVISE 11/26/2024 06/19/2024, , 04/21/2021, Additional history exists DEPRESSION SCREENING/FOLLOWUP 11/26/2024, 09/15/2021, 08/25/2021, Additional history exists SOCIAL NEEDS SCREENING 11/26/2024 INFLUENZA (#1) 2025 08/18/2021 CERVICAL CANCER SCREENING 06/19/20272023, 08/26/2019, 03/06/2016 DTAP/TDAP/TD (3 - Td or Tdap) 09/01/2031 09/01/2021, 07/08/2015 PNEUMOCOCCAL VACCINE FOR HIG H RISK PATIENTS (#1) 2058 Care Teams Fast Foods Worker Relationship Specialty Start Date End Date Abel Huggins MD PCP - General Family Practice 06/18/24
--- OUTSIDE RECORDS SUMMARY | 2025-07-21 08:29 | XMS_ITS | Encounter Summary ---
Author Organization [facility] Address [address] [place] [address] Care Team Providers Care Hyperion Analyst Name Role Phone Edison White MD Primary Care Provider Laura Lewis MD Primary Care Provider Unavailab Abel Roberts MD Primary Care Provider Unav ailable Encounter Details Date Type Department Care Team Description 12/05/2019 Release of Information Medical Records [address] [place] [id number] Abstract, Provider Social History Tobacco Use Types [...] on filedocumented in this encounter Care Teams Hyperion Analyst Relationship Specialty Start Date End Date Edison White MD PCP - General Internal Medicine 12/01/19 06/22/21 Laura Travis MD PCP - General Internal Medicine 06/23/21 06/17/24 Abel Huggins MD PCP - General Family Practice 06/18/24 documented as of this encounter
--- OUTSIDE RECORDS SUMMARY | 2025-07-21 08:29 | XMS_ITS | Encounter Summary ---
Author Organization [facility] Address [address] [place] [address] Care Team Providers Care Flight Surveyor Name Role Phone Edison White MD Primary Care Provider Laura Lewis MD Primary Care Provider UnavailAbel Acosta MD Primary Care Provider Unav ailable Encounter Details Date Type Department Care Team Description 02/28/2021 Pt. Non Urgent Medical Question OBGYN - [address] [address] Nancie Alvarenga CNM [address] [place] [address] Social History Tobacco Use Types Packs/Day Years [...] maybe i can try to go to [facility] instead. i tried to call radiology multiple times today but it keeps saying unavailable. please give me a call if you are to book an ultr asound somewhere else sooner thank you documented in this encounter Plan of Treatment Not on file documented as of this encounter Visit Diagnoses Not on filedocumented in this encounter Care Teams Flight Surveyor Relationship Specialty Start Date End Date Edison White MD PCP - General Internal Medicine 12/01/19 06/22/21 Laura Travis MD PCP - General Internal Medicine 06/23/21 06/17/24 Abel Huggins MD PCP - General Family Practice 06/18/24 documented as of this encounter
--- OUTSIDE RECORDS SUMMARY | 2025-07-21 08:29 | XMS_ITS | Encounter Summary ---
Author Organization [facility] Address [address] [place] [address] Care Team Providers Care Correctional Facility Nurse Name Role Phone Di Robertson MD Primary Care Provider Edison Thomas MD Primary Care Provider Misa ilLaura Thurston MD Primary Care Provider Unavailab Abel Roberts MD Primary Care Provider Unav ailable Encounter Details Date Type Department Care Team Description 11/13/2019 Refill STOPPER SETTER - [place] [address] [place] [phone] Sheridan Riggs CNM [address] [place] [address] Social History Tobacco Use Types [...] disorder documented in this encounter Care Teams Correctional Facility Nurse Relationship Specialty Start Date End Date Di Robertson MD PCP - General Internal Medicine 05/08/18 11/30/19 Edison White MD PCP - General Internal Medicine 12/01/19 06/22/21 Laura Travis MD PCP - General Internal Medicine 06/23/21 06/17/24 Aebl Huggins MD PCP - General Family Practice 06/18/24 documented as of this encounter
--- OUTSIDE RECORDS SUMMARY | 2025-07-21 08:29 | XMS_ITS | Encounter Summary ---
Author Organization [facility] Address [address] [place] [address] Care Team Providers Care Geriatric Social Worker Name Role Phone Edison White MD Primary Care Provider Laura Lewis MD Primary Care Provider Glendyab Abel Roberts MD Primary Care Provider Unav ailable Encounter Details Date Type Department Care Team Description 12/31/2019 Pt. Non Urgent Medical Question FIELD OPERATIONS FARM MANAGER - [address] [address] Sheridan Riggs CNM [address] [place] [address] Social History Tobacco Use Types [...] on filedocumented in this encounter Care Teams Geriatric Social Worker Relationship Specialty Start Date End Date Edison White MD PCP - General Internal Medicine 12/01/19 06/22/21 Laura Travis MD PCP - General Internal Medicine 06/23/21 06/17/24 Abel Huggins MD PCP - General Family Practice 06/18/24 documented as of this encounter
--- OUTSIDE RECORDS SUMMARY | 2025-07-21 08:29 | XMS_ITS | Encounter Summary ---
Author Organization [facility] Address [address] [place] [address] Care Team Providers Care Security Specialist Name Role Phone Di Robertson MD Primary Care Provider Edison Thomas MD Primary Care Provider Misa ilLaura Thurston MD Primary Care Provider UnavailAbel Acosta MD Primary Care Provider Unav ailable Encounter Details Date Type Department Care Team Description 08/11/2019 Refill SPONSORSHIP MANAGER - [address] [address] Sheridan Riggs CNM [address] [place] [address] Social History Tobacco Use Types [...] Tab [Sheridan Riggs CNM, CNM] Preferred pharmacy: [id number] - [place] - [address] [place] [address] AT Comment: documented in this encounter Plan of Treatment Not on file documented as of this encounter Visit Diagnoses Not on filedocumented in this encounter Care Teams Security Specialist Relationship Specialty Start Date End Date Di Robertson MD PCP - General Internal Medicine 05/08/18 11/30/19 Edison White MD PCP - General Internal Medicine 12/01/19 06/22/21 Laura Travis MD PCP - General Internal Medicine 06/23/21 06/17/24 Abel Huggins MD PCP - General Family Practice 06/18/24 documented as of this encounter
--- OUTSIDE RECORDS SUMMARY | 2025-07-21 08:29 | XMS_ITS | Encounter Summary ---
Author Organization [facility] Address [address] [place] [address] Care Team Providers Care Transfer Station Attendant Name Role Phone Edison White MD Primary Care Provider Laura Lewis MD Primary Care Provider Abel Mahmood MD Primary Care Provider Unav ailable Encounter Details Date Type Department Care Team Description 03/21/2021 Orders Only OBGYN - 271 [facility] [address] [place] [address] Sheridan Riggs, [facility] [address] [place] [address] Social History Tobacco Use Types [...] on filedocumented in this encounter Care Teams Transfer Station Attendant Relationship Specialty Start Date End Date Edison White MD PCP - General Internal Medicine 12/01/19 06/22/21 Laura Travis MD PCP - General Internal Medicine 06/23/21 06/17/24 Abel Huggins MD PCP - General Family Practice 06/18/24 documented as of this encounter
--- OUTSIDE RECORDS SUMMARY | 2025-07-21 08:29 | XMS_ITS | Encounter Summary ---
Author Organization [facility] Address [address] [place] [address] Care Team Providers Care Electro Tech Name Role Phone Crystal Peter MD Primary Care Provider Unava Di Hernandez MD Primary Care Provider Edison Thomas MD Primary Care Provider Unava fadiable Laura Travis MD Primary Care Provider Unavailab Abel Roberts MD Primary Care Provider Unav ailable Encounter Details Date Type Department Care Team Description 04/02/2017 Transfer Records Medical Records [address] [place] [id number] Abstract, Provider Social History Tobacco Use Types [...] on filedocumented in this encounter Care Teams Electro Tech Relationship Specialty Start Date End Date Crystal [...]
--- OUTSIDE RECORDS SUMMARY | 2025-07-21 08:29 | XMS_ITS | Encounter Summary ---
Author Organization [facility] Address [address] [place] [address] Phone Care Team Providers Care Roving Winder Name Role Phone Crystal Peter MD Primary Care Provider [phone] Encounter Details Date Type Department Care Team (Late st Contact Info) Description 10/22/2012 Documentation [facility] Family Medicine [address] [place], [place] [phone] Family Medicine, Physician [address] [place], [place] [address] Social History Tobacco Use Types Packs/Day Years [...] on filedocumented in this encounter Care Teams Roving Winder Relationship Specialty Start Date End Date Crystal Peter MD [address] [place] [address] [place] [address] PCP - General 07/06/17 02/25/23 documented as of this encounter
--- OUTSIDE RECORDS SUMMARY | 2025-07-21 08:30 | XMS_ITS | Encounter Summary ---
Author Organization [facility] Address [address] [place] [address] Care Team Providers Care Manager Trading Name Role Phone Edison White MD Primary Care Provider Laura Lewis MD Primary Care Provider Unavailab Abel Roberts MD Primary Care Provider Unav ailable Encounter Details Date Type Department Care Team Description 07/12/2020 Refill OBGYN - [place] [address] [place] [address] [facility] [address] [place] [address] Social History Tobacco Use Types Packs/Day Years [...] on filedocumented in this encounter Care Teams Manager Trading Relationship Specialty Start Date End Date Edison White MD PCP - General Internal Medicine 12/01/19 06/22/21 Laura Travis MD PCP - General Internal Medicine 06/23/21 06/17/24 Abel Huggins MD PCP - General Family Practice 06/18/24 documented as of this encounter
--- OUTSIDE RECORDS SUMMARY | 2025-07-21 08:30 | XMS_ITS | Encounter Summary ---
Author Organization [facility] Address [address] [place] [address] Care Team Providers Care Board Writer Name Role Phone Laura Travis MD Primary Care Provider Unavailab Abel Roberts MD Primary Care Provider Unav ailable Encounter Details Date Type Department Care Team Description 10/05/2021 Pt. Non Urgent Medical Question OBGYN - 271 [facility] 271 [place] [address] Pamela Ramirez, [facility] 175 [place] [phone] Social History Tobacco Use Types Packs/Day Years [...] on filedocumented in this encounter Care Teams Board Writer Relationship Specialty Start Date End Date Laura Travis MD PCP - General Internal Medicine 06/23/21 06/17/24 Abel Huggins MD PCP - General Family Practice 06/18/24 documented as of this encounter
--- OUTSIDE RECORDS SUMMARY | 2025-07-21 08:30 | XMS_ITS | Encounter Summary ---
Author Organization [facility] Address [address] [place] [address] Phone Care Team Providers Care Diamond Sizer And Sorter Name Role Phone Crystal Peter MD Primary Care Provider [phone] Encounter Details Date Type Department Care Team (Late st Contact Info) Description 12/12/2013 Documentation [facility] [place] [address] [place], [place] [phone] Family Medicine, Physician [address] [place] [place], [place] [address] Social History Tobacco Use Types Packs/Day Years [...] on filedocumented in this encounter Care Teams Diamond Sizer And Sorter Relationship Specialty Start Date End Date Crystal Peter MD [address] [place] [address] [place] [address] PCP - General 07/06/17 02/25/23 documented as of this encounter
--- OUTSIDE RECORDS SUMMARY | 2025-07-21 08:30 | XMS_ITS | Encounter Summary ---
Author Organization [facility] Address [address] [place] [address] Phone Care Team Providers Care Superintendent Name Role Phone Crystal Peter MD Primary Care Provider [phone] Encounter Details Date Type Department Care Team (Late st Contact Info) Description 06/15/2014 Documentation [facility] [place] Family Medicine [address] [place], [place] [phone] Family Medicine, Physician [address] [place], [place] [address] Social History Tobacco Use Types Packs/Day Years [...] on filedocumented in this encounter Care Teams Superintendent Relationship Specialty Start Date End Date Crystal Peter MD [address] [place] [address] [place] [address] PCP - General 07/06/17 02/25/23 documented as of this encounter
--- OUTSIDE RECORDS SUMMARY | 2025-07-21 08:30 | XMS_ITS | Encounter Summary ---
Author Organization [facility] Address [address] [place] [address] Care Team Providers Care Industry Analyst Name Role Phone Edison White MD Primary Care Provider Laura Lewis MD Primary Care Provider Unavailab Abel Roberts MD Primary Care Provider Unav ailable Encounter Details Date Type Department Care Team Description 08/03/2020 Pt. Non Urgent Medical Question OBGYN - 271 [facility] 271 [place] [phone] Ramirez Pamela, [facility] [address] [place] [address] Social History Tobacco Use Types [...] on filedocumented in this encounter Care Teams Industry Analyst Relationship Specialty Start Date End Date Edison White MD PCP - General Internal Medicine 12/01/19 06/22/21 Laura Travis MD PCP - General Internal Medicine 06/23/21 06/17/24 Abel Huggins MD PCP - General Family Practice 06/18/24 documented as of this encounter
--- OUTSIDE RECORDS SUMMARY | 2025-07-21 08:30 | XMS_ITS | Encounter Summary ---
Author Organization [facility] Address [address] [place] [address] Care Team Providers Care Fire Fighter [employer] Name Role Phone Laura Travis MD Primary Care Provider Abel Mahmood MD Primary Care Provider Unav ailable Encounter Details Date Type Department Care Team Description 07/28/2021 Pt. Non Urgent Medical Question OBGYN - 271 [facility] 271 [place] [address] Pamela Ramirez CNM [address] [place] [address] Social History Tobacco Use Types [...] have Coronavirus / COVID-19? No / Unsure 07/21/2021 11:21 AM EDT documented as of this encounter Miscellaneous Notes * Telephone Encounter - Char Dobbs R.N. - 07/28/2021 9:29 AM EDTFrom: Coby Timmons To: Pamela Ramirez CNM Sent: 07/28/2021 8:14 AM EDT Subject: Question Good Morning, i had an incident this morning where it felt like i peed my pants so i went into the bathroom and wiped and the tissue was yellow but no odor. not sure if im having urinary incontinence. not having any pain baby is moving like normal. at the time i had no urge to go to the bathroom and wasnt doing anything out of the ordinary just making breakfast. Just wanted to see if this is normal. thanks coby documented in this encounter Plan of Treatment Not on file documented as of this encounter Visit Diagnoses Not on filedocumented in this encounter Care Teams Fire Fighter [employer] Relationship Specialty Start Date End Date Laura Travis MD PCP - General Internal Medicine 06/23/21 06/17/24 Abel Huggins MD PCP - General Family Practice 06/18/24 documented as of this encounter
--- OUTSIDE RECORDS SUMMARY | 2025-07-21 08:30 | XMS_ITS | Patient Health Record ---
Author Organization [facility] Address [address] [place] [id number] Care Team Providers Care Laser Systems Engineer Name Role Phone OLYA MICHEL Unavailable [phone] Allergies Allergen (clinical drug ingredient) Drug/Non Drug Allergy documented on EMR Reaction Allergy Type Onset Date Status amoxicillin Amoxicillin Unknown Drug Allergy Act nikki Results Component Value Reference Range Notes Ct, Ng, Trich vag by [id number] Reviewed date:12/12/2024 11:13:11 AM Interpretation:Negative Performing Lab:[facility] Ramon, Elvis [address]sey [address], [address], [place], Phone - [phone], Director - [facility] Notes/Report: Chlamydia by RHYS Negative Negative Gonococcus by RHYS Negative Negative Trich vag by RHYS Negative Negative Wet Mount Reviewed date:12/10/2024 03:49:39 PM Interpretation:BV positive Performing Lab: Notes/Report: BV positive Clue Cells pos WBC pos Hyphae neg Trichomonas neg pH 5.5 NARESH Prep faint pos Reason For Referral No Information Medications Medication SIG (Take, Route, Frequency, Duration) Notes Start Date End Date Status Mirena 2021? Active Ubrelvy Active Dupixent Active Aimovig Active Effexor Active Albuterol As needed Active MetroGel-Vaginal 0.75 % 1 application at bedtime Vaginal Once a day; Duration: 5 day(s) 12/10/2024 Active Social History Sex Assigned At : Social History Observation Description Sex Assigned At Female Section Notes: Aptima Vital Signs Blood pressure diastolic 68 mm Hg 12/10/2024 Height 5'0 in 12/10/2024 Blood pressure systolic 116 mm Hg 12/10/2024 Weight 161.2 lbs 12/10/2024 BMI 31.48 kg/m2 12/10/2024 Encounters Encounter Location Date Provider Diagnosis [place] [facility] [address] [place], [place] [id number] 12/10/2024 OLYA MICHEL Encounter for scre ening [...] Insured Coverage Start Date Coverage End Date [facility] [employer] [address] [address] [place], [place] [id number] Coby Timmons Self - patient is the insured Medical (General) History Medical History History ICD Code Migraines asthma Depression/anxiety Hospitalization History Reason Date(Month/Year) Child
--- OUTSIDE RECORDS SUMMARY | 2025-07-21 08:30 | XMS_ITS | Encounter Summary ---
Author Organization [facility] Address [address] [place] [address] Care Team Providers Care Biodiesel Engineering Manager Name Role Phone Crystal Peter MD Primary Care Provider Unava Di Hernandez MD Primary Care Provider Edison Thomas MD Primary Care Provider Unava fadiable Laura Travis MD Primary Care Provider Unavailab Abel Roberts MD Primary Care Provider Unav ailable Encounter Details Date Type Department Care Team Description 09/13/2017 Potato Loader Notes Medical Records [address] [place] [address] Abstract, Provider Social History Tobacco Use Types [...] on filedocumented in this encounter Care Teams Biodiesel Engineering Manager Relationship Specialty Start Date End Date [...]
--- OUTSIDE RECORDS SUMMARY | 2025-07-21 08:30 | XMS_ITS | Encounter Summary ---
Author Organization [facility] Address [address] [place] [address] Care Team Providers Care Technician Preventative Medicine Name Role Phone Edison White MD Primary Care Provider Laura Lewis MD Primary Care Provider Abel Mahmood MD Primary Care Provider Unav ailable Encounter Details Date Type Department Care Team Description 05/11/2021 Pt. Non Urgent Medical Question OBGYN - [address] [facility] [address] [place] [phone] Ramirez Pamela, [facility] [address] [place] [address] Social History Tobacco Use Types [...] have Coronavirus / COVID-19? No / Unsure 05/12/2021 8:39 AM EDT documented as of this encounter Plan of Treatment Not on file documented as of this encounter Visit Diagnoses Not on filedocumented in this encounter Care Teams Technician Preventative Medicine Relationship Specialty Start Date End Date Edison White MD PCP - General Internal Medicine 12/01/19 06/22/21 Laura Travis MD PCP - General Internal Medicine 06/23/21 06/17/24 Abel Huggins MD PCP - General Family Practice 06/18/24 documented as of this encounter
--- OUTSIDE RECORDS SUMMARY | 2025-07-21 08:30 | XMS_ITS | Encounter Summary ---
Author Organization [facility] Address [address] [place] [address] Phone Care Team Providers Care Manufacturing Director Name Role Phone Crystal Peter MD Primary Care Provider [phone] Encounter Details Date Type Department Care Team (Late st Contact Info) Description 07/12/2017 Conversion Encounter [facility] [address] [place] [address] Social History Tobacco Use Types Packs/Day Years [...] on filedocumented in this encounter Care Teams Manufacturing Director Relationship Specialty Start Date End Date Crystal Peter MD [address] [place] [address] PCP - General 07/06/17 02/25/23 documented as of this encounter
--- OUTSIDE RECORDS SUMMARY | 2025-07-21 08:30 | XMS_ITS | Encounter Summary ---
Author Organization [facility] Address [address] [place] [address] Care Team Providers Care Farm Appraiser Name Role Phone Crystal Peter MD Primary Care Provider Unava Di Hernandez MD Primary Care Provider Edison Thomas MD Primary Care Provider Unava fadiable Laura Travis MD Primary Care Provider Unavailab Abel Roberts MD Primary Care Provider Unav ailable Encounter Details Date Type Department Care Team Description 09/20/2017 Prepared Foods Supervisor Notes Medical Records [address] [place] [address] Abstract, Provider Social History Tobacco Use Types [...] on filedocumented in this encounter Care Teams Farm Appraiser Relationship Specialty Start Date End Date Crystal [...]
--- OUTSIDE RECORDS SUMMARY | 2025-07-21 08:30 | XMS_ITS | Encounter Summary ---
Author Organization [facility] Address [address] [place] [address] Care Team Providers Care Bow Repairer Custom Name Role Phone Edison Whiet MD Primary Care Provider Laura Lewis MD Primary Care Provider Abel Mahmood MD Primary Care Provider Unav ailable Encounter Details Date Type Department Care Team Description 05/04/2021 Pt. Non Urgent Medical Question OBGYN - [address] [facility] [address] [place] [phone] Ramirez Pamela, [facility] [address] [place] [address] Social History Tobacco Use Types [...] have Coronavirus / COVID-19? No / Unsure 04/21/2021 9:40 AM EDT documented as of this encounter Plan of Treatment Not on file documented as of this encounter Visit Diagnoses Not on filedocumented in this encounter Care Teams Bow Repairer Custom Relationship Specialty Start Date End Date Edison White MD PCP - General Internal Medicine 12/01/19 06/22/21 Laura Travis MD PCP - General Internal Medicine 06/23/21 06/17/24 Abel Huggins MD PCP - General Family Practice 06/18/24 documented as of this encounter
--- OUTSIDE RECORDS SUMMARY | 2025-07-21 08:30 | XMS_ITS | Clinical Summary ---
Author Organization [facility] Address [address] [place] [address] Phone Care Team Providers Care Grade Checker Name Role Phone Unavailable Primary Care Provider [...] AM EDT Pulse - - Temperature 37.2 C (98.9 F) 08/04/2013 12:00 AM EDT Respiratory Rate - - Oxygen Saturation - [...] 09/15/2018 09/15/2008, 04/04/2004, 12/24/1997, Additional history exists COVID-19 Vaccine ( season) 2024 Influenza Vaccines (#1) 2025 12/26/19 13, 10/07/2011, 09/15/2010, Additional history exists Hepatitis B Vaccines Completed 1993, 1993, 1993 [...]
--- OUTSIDE RECORDS SUMMARY | 2025-07-21 08:30 | XMS_ITS | Encounter Summary ---
Author Organization [facility] Address [address] [place] [address] Care Team Providers Care Sec Reporting Consultant Name Role Phone Edison White MD Primary Care Provider Laura Lewis MD Primary Care Provider Unavailab Abel Roberts MD Primary Care Provider Unav ailable Encounter Details Date Type Department Care Team Description 04/12/2021 Orders Only Ultrasound - [address] [address] Pamela Ramirez, CNM [address] [place] [address] First trimester screening (Primary Dx) Social History Tobacco Use Types Packs/Day Years [...] have Coronavirus / COVID-19? No / Unsure 04/12/2021 2:46 PM EDT documented as of this encounter Plan of Treatment Not on file documented as of this encounter Results * FIRST SCREEN (04/12/2021 3:17 PM EDT) FIRST SCREEN SCREEN NEGATIVE 04/17/2021 11:56 AM EDT [facility] 04/12/2021 3:17 PM EDT 04/12/2021 3:18 PM EDT Narrative [facility] - 04/12/2021 11:56 AM EDT Release to patient->Immediate Pamela Ramirez CNM LAB [facility] documented in this encounter Visit Diagnoses Diagnosis First trimester screening- Primary Other specified screening First trimester screening Other specified screening documented in this encounter Care Teams Sec Reporting Consultant Relationship Specialty Start Date End Date Edison White MD PCP - General Internal Medicine 12/01/19 06/22/21 Laura Travis MD PCP - General Internal Medicine 06/23/21 06/17/24 Abel Huggins MD PCP - General Family Practice 06/18/24 documented as of this encounter
--- OUTSIDE RECORDS SUMMARY | 2025-07-21 08:31 | XMS_ITS | Encounter Summary ---
Author Organization [facility] Address [address] [place] [address] Care Team Providers Care Labor Custodian Name Role Phone Edison White MD Primary Care Provider Laura Lewis MD Primary Care Provider UnavailAbel Acosta MD Primary Care Provider Unav ailable Encounter Details Date Type Department Care Team Description 11/23/2020 Pt. Non Urgent Medical Question Adult Medicine [address] [address] Caro Richardson FNP [address] [place] [address] Social History Tobacco Use Types Packs/Day Years [...] for over 3 years and recently my slipman increased it to 75mg because 50mg was no longer helping me. i have been on the 75mg for 3 weeks and nikki been experiencing ticks on my right side and right hand numbness and tingling. i did inform my slipman about this who advise to decrease ba ck to 50mg and to speak to you about possibly changing to a different medication. i am waiting to hear back for a thearpy appt with [facility]. i Just wanted to see if anything could be done in the mean time. thanks documented in this encounter Plan of Treatment Not on file documented as of this encounter Visit Diagnoses Not on filedocumented in this encounter Care Teams Labor Custodian Relationship Specialty Start Date End Date Edison White MD PCP - General Internal Medicine 12/01/19 06/22/21 Laura Travis MD PCP - General Internal Medicine 06/23/21 06/17/24 Abel Huggins MD PCP - General Family Practice 06/18/24 documented as of this encounter
[2025-07-21 08:32] VITALS: BP 106/72; PULSE 104; RESP 12; TEMP 37.1; O2SAT 99; BMI 33.0
== END 2025-07-21 08:59 | disposition home or self-care (01) ==
LOC: HO.HMCFM 08:20
PROVIDERS: PCP Internal Medicine; Visit Provider Internal Medicine
DX: Z00.00 Encounter for general adult medical examination without abnormal findings (principal); I73.81 Erythromelalgia

== ENCOUNTER → 2025-07-21 08:19 | Outpatient (BNVA) | payer OTHER, SELFPAY | PROVIDERS: PCP Internal Medicine; Visit Provider Internal Medicine | DX: Z00.00 Encounter for general adult medical examination without abnormal findings (principal); I73.81 Erythromelalgia; Z13.31 Encounter for screening for depression; Z13.39 Encounter for screening examination for other mental health and behavioral disorders | CPT/HCPCS: 96127; 99395 ==

== ENCOUNTER 2025-09-17 09:17 | Outpatient (AMB) | payer OTHER, SELFPAY ==
[2025-09-17 09:44] VITALS: BP 100/70; PULSE 98; O2SAT 98; BMI 34.2
--- NOTE | 2025-09-17 09:44 | A.OFFVIS_ITS ---
Vital Signs 09/17/25 09:44 Height 5 ft Weight 175 lb BMI 34.2 BP 100/70 Blood Pressure Location Rt brachial Position Sitting Pulse 98 Pulse Source Pulse Oximeter Pulse Oximetry (%) 98 Oxygen Delivery Method Room Air Intake Visit Reasons: 6 mo follow up Reimbursement Specialist Required: No Accompanied by: Self / Same As Patient Allergies amoxicillin (AMOXICILLIN) Allergy (Unknown, Verified 09/17/25 09:46) UNKNOWN, hives Seasonal Allergies Allergy (Unknown, Verified 09/17/25 09:46) Hives Medication List - Last Reconciled 09/17/25 by JANUSZ Fields albuterol sulfate 90 mcg/actuation (ProAir HFA) 1 - 2 puffs inhalation Q4-6H PRN doxepin 5% 1 appl topical Q6H dupilumab (Dupixent) mg subcut Q2W epinephrine IM erenumab-aooe (Aimovig Autoinjector) 140 mg subcut ONCE 30 days levonorgestrel (Mirena) intrauterine mirtazapine 7.5 mg PO BEDTIME triamcinolone acetonide 0.1% 1 appl topical DAILY Ubrelvy (ubrogepant) 50 - 100 mg (0.5 - 1 x 100 mg) PO ONCE PRN 30 days NS venlafaxine ER (Effexor XR) 75 mg PO DAILY HPI Comments Details: 30-yr-old female presents for f/u visit. Sleep study (April 08, 2025) showed soft to moderate snoring, AHI of 0, and O2 frandy of 92%. After review of the sleep study, she was advised to follow-up with ENT due to history of known nasal polyps. Nasal polyps are currently being treated with Dupixent. Unfortunately, she has not been able to get through to the ENT office. She was started on mirtazapine for sleep. She is currently on 7.5 mg q.h.s., and notes that at 15 mg q.h.s. she experienced a feeling of being bolus physically slow and mentally activated. Migraines are stable. Typically having 4 migraines days per month during her menstrual cycle, and none outside of her menstrual cycle. Unfortunately, her menstrual cycle is regular, even when she is on control. She has stopped Rizatriptan, as it was not consistently effective, and Ubrelvy works better. Ubrelvy continues to be effective and well tolerated. Baseline headache characteristics: Severe. Usually an aching pain in the left frontal to right frontal and into right face. Can be in pressure in the back of head as well. These occur together. A/w photophobia, phonophobia, (usually osmophobic d/t nasal polyps), nausea, brain fog, and fatigue. Denies paresthesias, autonomic, or focal weakness. 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 Current occupational exposures/hazards: No Cognitive needs: No Hearing needs: No Vision needs: No Physical Exam Vital Signs: Last Vital Signs Pulse 98 09/17/25 09:44 BP 100/70 09/17/25 09:44 Pulse Ox 98 09/17/25 09:44 Oxygen Delivery Method Room Air 09/17/25 09:44 BMI result Body Mass Index 34.2 Const General: cooperative and no acute distress Orientation/consciousness: patient oriented x3 Resp Effort & Inspection: normal respiratory effort and able to speak in complete sentences Neuro General: patient oriented x3 Cranial nerves: Yes CN's II-XII intact bilaterally Cognition (Neuro): normal cognition Psych Appearance: grossly normal Mental Status: mental status grossly normal Speech and movement: Normal speech and movement present Affect: normal affect Attitude: cooperative Assessment & Plan Assessment & Plan (1) Migraine without aura: Code(s): G43.009 - Migraine without aura, not intractable, without status migrainosus Category: Medical Qualifiers: Status migrainosus presence: without status migrainosus Intractability: intractable Qualified Code(s): G43.019 - Migraine without aura, intractable, without status migrainosus (2) Excessive daytime sleepiness: Code(s): G47.19 - Other hypersomnia Category: Medical (3) Snoring: Code(s): R06.83 - Snoring Category: Medical (4) Sleep difficulties: Code(s): G47.9 - Sleep disorder, unspecified Category: Medical Plan I discussed the ongoing management of the patient's migraines, particularly in relation to her irregular menstrual cycle. We explored using Ubrelvy more consistently during her cycle to manage migraines, as it has been effective without causing medication overuse. We discussed lifestyle modifications such as consuming edamame to potentially mitigate estrogen-related migraines, although this is a theoretical approach without strong clinical evidence. Follow-up actions on medication include verifying continued access to Aimovig and Ubrelvy. Potential use of anti-snore devices, including nasal strips and wedge pillows, was discussed as temporary solutions for snoring, along with the possibility of an ENT evaluation for further assessment if it persists. Communication regarding [facility] for polyps was suggested for snoring management. I reiterated the importance of managing day-to-day stress and lifestyle modifications to potentially improve sleep and reduce migraine frequency. Patient was informed and verbally consented to the use of an ambient scribe for clinic note documentation during this visit. For sleep difficulties: HST inconclusive In-lab sleep study: No evidence of sleep apnea, however [id number] snoring in setting of nasal polyps. Follow-up with ENT Consider referral to [facility]'s craniofacial plastic surgery office for polyps- we will call them to see if they would see patient. Continue mirtazapine 7.5 mg daily at bedtime-this may help headaches as well For overall headache management: Continue to optimize good self-care, including but not limited to maintaining a healthy diet, adequate fluid intake, adequate sleep, and engaging in regular physical activity. Track headaches. ? For right neck-mastoid pain- If recurs, trial Ubrelvy Future considerations- c-spine imaging, PT. ? For acute headache treatment: Discontinue Rizatriptan 5-10mg prn. Continue Ubrogepant (Ubrelvy) 100mg tab, 1/2 - 1 tab (50-100mg) at onset of headache, may repeat in 2 hours. Max of 2 tabs (200mg) per 24 hours. May adjunct with OTC Tylenol 650mg q 4 hours, Ibuprofen 600mg q 6 hours, or Naproxen 440mg q 12 hrs prn. May take Ubrelvy 1-2 times per day during menstrual cycle. May also try taking 1 cup of edamame per day during menstrual cycle. Previous acute migraine medication trials: Sumatriptan- sweating and head on fire sensation. Rizatriptan 10 mg was ineffective. Acute migraine medication contraindications: None at the time ? For headache prevention medication: Continue Riboflavin 400mg qam Continue Magnesium 400mg every other/every 3rd night-may hold for loose stools Continue Aimovig 140mg sc q month. Previous migraine prevention medication trials: Amitriptyline 20mg qhs- ineffective and not tolerated. Lamotrigine- used for mood- caused worsening migraines and ? RUE muscle twitching. Migraine prevention medication contraindications: BBS d/t symptomatic asthma dx. ? f/u in 6 months or sooner prn. Medications: Refilled erenumab-aooe (Aimovig Autoinjector) 140 mg subcut ONCE 1 mL 11RF 30 days Ubrelvy (ubrogepant) take at onset of migraine, may repeat in 2hrs (may take w/ Ibuprofen) 50 - 100 mg (0.5 - 1 x 100 mg) PO ONCE PRN 10 tabs 6RF migraine headache 30 days NS Coding Level of Care Code Est Pt Level 4 (78689) Diagnoses Intractable migraine without aura and without status migrainosus G43.019 Status migrainosus presence: without status migrainosus Intractability: intractable Excessive daytime sleepiness G47.19 Snoring R06.83 Sleep difficulties G47.9
--- OUTSIDE RECORDS SUMMARY | 2025-09-17 10:15 | XMS_ITS | Clinical Summary ---
Author Organization [facility] Address [address] [place] [address] Care Team Providers Care Driver/Sales Workers Name Role Phone Abel Huggins MD Primary Care Provider [phone] Surgical History Surgery Date Site/Laterality Comments BREAST [...] of 3 - 19+ 3-dose series) 02/10/2012 HPV Vaccines (1 - 3-dose SCD M series) 02/10/2020 HIV Screening 10/25/2022 Hepatitis C Screening 10/25/2022 Social Influencers of Health Screening 10/25/2022 Depression Screening 11/26/2024 COVID-19 Vaccine (3 - 2024-2 6 season) 2025 01/09/2021, 12/19/2020 Influenza Vaccine (#1) 2025 08/18/2021 Cervical Cancer Screening: P ap Smear 06/19/2027 06/19/2024, 08/26/2019 DTaP,Tdap,and Td Vaccines (3 - Td or Tdap) 09/01/2031 09/01/2021, 07/08/2015 RSV Immunization Adult Patients (1 - 1-dose 75+ series) 02/10/2068 HIB Vaccines Aged Out No longer eligi [...] RESULTING AGENCY - 06/24/2024 4:50 PM EDT [id number] THINPREP PAP, IMAGED: NEGATIVE FOR SQUAMOUS INTRAEPITHELIAL [...] 06/17/24, PAP HX NEGATIVE 2019, [Z01.419] Pamela [facility] CYTOLOGY ORDERABLES Final Result HISTORICAL TESTING LAB RESULTING AGENCY from Last 3 Months or Most Recently Relevant to Health Maintenance Care Teams Driver/Sales Workers Relationship Specialty Start Date End Date Abel Huggins MD [address] [place] [address] Dr Jonel [place] PCP - General 06/18/24
--- OUTSIDE RECORDS SUMMARY | 2025-09-17 10:15 | XMS_ITS | Encounter Summary ---
Author Organization [facility] Address [address] [place] [address] Phone Care Team Providers Care Generation Mechanic Helper Name Role Phone Crystal Peter MD Primary Care Provider [phone] Encounter Details Date Type Department Care Team (Late st Contact Info) Description 03/25/2012 Documentation [facility] [place] [address] [place], [place] [phone] Family Medicine, Physician [address] [place], [place] [phone] Social History Tobacco Use Types Packs/Day Years [...] on filedocumented in this encounter Care Teams Generation Mechanic Helper Relationship Specialty Start Date End Date Crystal Peter MD [address] [place] [address] [place] [address] PCP - General 07/06/17 02/25/23 documented as of this encounter
--- OUTSIDE RECORDS SUMMARY | 2025-09-17 10:15 | XMS_ITS | Encounter Summary ---
Author Organization [facility] Address [address] [place] [address] Phone Care Team Providers Care Video Production Coordinator Name Role Phone Crystal Peter MD Primary Care Provider [phone] Encounter Details Date Type Department Care Team (Late st Contact Info) Description 12/12/2013 Documentation [facility] [place] [address] [place], [place] [phone] Family Medicine, Physician [address] [place] [place], [place] [address] Social History Tobacco Use Types Packs/Day Years [...] on filedocumented in this encounter Care Teams Video Production Coordinator Relationship Specialty Start Date End Date Crystal Peter MD [address] [place] [address] [place] [address] PCP - General 07/06/17 02/25/23 documented as of this encounter
--- OUTSIDE RECORDS SUMMARY | 2025-09-17 10:15 | XMS_ITS | Encounter Summary ---
Author Organization [facility] Address [address] [place] [address] Phone Care Team Providers Care Railroad Yard Worker Name Role Phone Crystal Peter MD Primary Care Provider [phone] Encounter Details Date Type Department Care Team (Late st Contact Info) Description 03/28/2012 Documentation [facility] [place] Medicine [address] [place], [place] [phone] Family Medicine, Physician [address] [place], [place] [address] Social History Tobacco Use Types Packs/Day Years [...] on filedocumented in this encounter Care Teams Railroad Yard Worker Relationship Specialty Start Date End Date Crystal Peter MD [address] [place] [address] [place] [address] PCP - General 07/06/17 02/25/23 documented as of this encounter
--- OUTSIDE RECORDS SUMMARY | 2025-09-17 10:15 | XMS_ITS | Clinical Summary ---
Author Organization [facility] Address [address] [place] [address] Phone Care Team Providers Care Instructor Traffic Safety Name Role Phone Unavailable Primary Care Provider [...] 12/24/1997, Additional history exists Influenza Vaccines (#1) 2025 12/26/19 13, 10/07/2011, 09/15/2010, Additional history exists COVID-19 Vaccine (2024- season) 2025 Hepatitis B Vaccines Completed 1993, 1993, 1993 [...]
--- OUTSIDE RECORDS SUMMARY | 2025-09-17 10:15 | XMS_ITS | Encounter Summary ---
Author Organization [facility] Address [address] [place] [address] Phone Care Team Providers Care Beef Pluck Trimmer Name Role Phone Crystal Peter MD Primary Care Provider [phone] Encounter Details Date Type Department Care Team (Late st Contact Info) Description 06/15/2014 Documentation [facility] [place] Family Medicine [address] [place], [place] [phone] Family Medicine, Physician [address] [place], [place] 255591 Social History Tobacco Use Types Packs/Day Years [...] on filedocumented in this encounter Care Teams Beef Pluck Trimmer Relationship Specialty Start Date End Date Crystal Peter MD [address] [place] [address] [place] [address] PCP - General 07/06/17 02/25/23 documented as of this encounter
--- OUTSIDE RECORDS SUMMARY | 2025-09-17 10:15 | XMS_ITS | Encounter Summary ---
Author Organization [facility] Address [address] [place] [address] Phone Care Team Providers Care Market News Reporter Name Role Phone Crystal Peter MD Primary Care Provider [phone] Encounter Details Date Type Department Care Team (Late st Contact Info) Description 03/27/2012 Documentation [facility] [place] [address] [place], [place] [phone] Family Medicine, Physician [address] [place], [place] 156311 Social History Tobacco Use Types Packs/Day Years [...] on filedocumented in this encounter Care Teams Market News Reporter Relationship Specialty Start Date End Date Crystal Peter MD [address] [place] [address] [place] [address] PCP - General 07/06/17 02/25/23 documented as of this encounter
--- OUTSIDE RECORDS SUMMARY | 2025-09-17 10:15 | XMS_ITS | Encounter Summary ---
Author Organization [facility] Address [address] [place] [address] Phone Care Team Providers Care Leaf Blender Name Role Phone Crystal Peter MD Primary Care Provider [phone] Encounter Details Date Type Department Care Team (Late st Contact Info) Description 10/22/2012 [place]ation [facility] [place] [address] [place], [place] [phone] Family Medicine, Physician [address] [place], [place] [address]561 Social History Tobacco Use Types Packs/Day Years [...] on filedocumented in this encounter Care Teams Leaf Blender Relationship Specialty Start Date End Date Crystal Peter MD [address] [place] [address] [place] [address] PCP - General 07/06/17 02/25/23 documented as of this encounter
--- OUTSIDE RECORDS SUMMARY | 2025-09-17 10:15 | XMS_ITS | Encounter Summary ---
Author Organization [facility] Address [address] [place] [address] Phone Care Team Providers Care Cellular Biologist Name Role Phone Crystal Peter MD Primary Care Provider [phone] Encounter Details Date Type Department Care Team (Late st Contact Info) Description 07/12/2017 Conversion Encounter [facility] [address] [place] [address] Social History Tobacco Use Types Packs/Day Years [...] on filedocumented in this encounter Care Teams Cellular Biologist Relationship Specialty Start Date End Date Crystal Peter MD [address] [place] [address] PCP - General 07/06/17 02/25/23 documented as of this encounter
== END 2025-09-17 10:19 | disposition home or self-care (01) ==
LOC: HO.HSMS 09:18
PROVIDERS: PCP Internal Medicine; Visit Provider Nurse Practitioner Family
DX: G43.019 Migraine without aura, intractable, without status migrainosus (principal); G47.19 Other hypersomnia; R06.83 Snoring; G47.9 Sleep disorder, unspecified
CPT/HCPCS: 99214

== ENCOUNTER → 2025-09-17 09:17 | Outpatient (BNVA) | payer OTHER, SELFPAY | PROVIDERS: PCP Internal Medicine; Visit Provider Nurse Practitioner Family | DX: G43.019 Migraine without aura, intractable, without status migrainosus (principal); R06.83 Snoring; G47.9 Sleep disorder, unspecified | CPT/HCPCS: 99212 ==

== ENCOUNTER 2025-10-16 15:25 | Outpatient (AMB) | payer OTHER, SELFPAY ==
--- NOTE | 2025-10-16 15:29 | MHC.PC.OV ---
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 On effe[facility], clonidine. She is on mirtazipine which is the only medication that works for her for insomnia but has also prevented her from being able to lose weight. She is working out-cardio 5x/week. She has started to eat lower calorie healthier choice diety without any weight loss. She would like to see nutrition and trial GLP Follows with allergy, Sheila Rothman at [facility] allergy. Gets allergy shots. History of PNA. She gets reddening and burning of the face after exercise or sweating Neurology: Following with [facility] [place], Dr Sarkar. Goes to mastic man at [facility]. Says she is up to date Tdap . Daughter is 3 ROS CONSTITUTIONAL: Denies weight loss, fever and chills. HEENT: Denies changes in vision and hearing. RESPIRATORY: Denies SOB and cough. CV: Denies palpitations and CP GI: Denies abdominal pain, nausea, vomiting and diarrhea. : Denies dysuria and urinary frequency. MSK: Denies new myalgia and joint pain. SKIN: No rashes NEUROLOGICAL: Denies headache PSYCHIATRIC: Denies recent changes in mood. PHYSICAL EXAM: GENERAL: Alert and oriented x 3. NAD EYES: EOMI. Anicteric. HENT: Moist mucous membranes. LUNGS: Clear to auscultation bilaterally. CARDIOVASCULAR: Regular rate and rhythm. No murmur. No JVD. ABDOMEN: Soft, non-tender +bs EXTREMITIES: No edema. Non-tender. SKIN: No rashes or lesions. Warm. NEUROLOGIC: No focal neurological deficits. CN II-XII grossly intact PSYCHIATRIC: Cooperative. Appropriate mood and affect [facility] Medical History (Updated 10/16/25 @ 16:29 by Lindsey Roach MD) Depression Nasal polyps Asthma Surgical History History of lumpectomy of right breast Family History Paternal Grandmother Cancer Colon cancer Mother Hypertension Hypercholesteremia Arthritis FH: mental illness Substance abuse Father Diabetes History of heart attack Hypertension FH: mental illness Substance abuse Sister Asthma Social History (Updated 10/16/25 @ 15:38 by Tanna Flores CMA) Housing: House Alcohol intake: current Patient Tobacco Use Status: Never used Tobacco e-Cigarette/Vaping Use: Never Used Second Hand Smoke Exposure: No Use of substances other than those prescribed or required for medical reasons: No service: No Current occupational status: employed 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 Current occupational exposures/hazards: No Cognitive needs: No Hearing needs: No Vision needs: No Questionnaire Thrive Questionnaire Date Thrive assessed: 07/14/25 I am a: Patient What is your living situation today?: I have a steady place to live Within the past 12 months, did the food you bought not last and you didn't have the money to get more?: Never true Within the past 12 months, did you worry whether your food would run out before you got money to buy more?: Never true Do you have trouble paying for medicines?: No Do you have trouble getting transportation to medical appointments?: No Do you have trouble paying your heating and electricity bill?: No Do you have trouble taking care of your child, family member or friend?: No Do you have trouble with day-to-day activities such as bathing, preparing meals, shopping, managing finances, etc.?: No Are you currently unemployed and looking for a job?: No Are you interested in more education?: No Please select the resources that you would like help with: None Currently or been in a relationship where the following occur: No concerns reported THRIVE Score: 0 AUDIT C Alcohol Use Questionnaire (AUDIT-C) 1. How often do you have a drink containing alcohol?: Monthly or less 2. How many drinks containing alcohol do you have on a typical day when you are drinking?: 1 or 2 3. How often do you have six or more drinks on one occasion?: Never Total Score: 1 DRE-7 AMB Questionnaire DRE-7 Date DRE - 7 assessed: 07/21/25 Source: Developed by Drs. Ajith Hernandez, Kirstie Garcia, Jamari Ribera and colleagues, with an educational guillermina from [employer]. Physical exam (Primary Care) Vital Signs: Last Vital Signs Pulse 105 H 10/16/25 15:36 Resp 14 10/16/25 15:36 BP 102/74 10/16/25 15:36 Pulse Ox 99 10/16/25 15:36 Oxygen Delivery Method Room Air 10/16/25 15:36 BMI result Body Mass Index 34.8 Tobacco/Smoking Status: Tobacco use Status Tobacco use date assessed 10/16/25 10/16/25 15:37 Patient Tobacco Use Status Never used Tobacco 10/16/25 15:38 e-Cigarette/Vaping Use Never Used 10/16/25 15:38 Thrive Assessment: Date of Thrive Assessment Date Thrive assessed 07/14/25 10/16/25 15:30 Currently or been in a relationship where the following occur: No concerns reported Coding Level of Care Code Est Pt Level 4 (43136) Diagnoses Obesity (BMI 30.0-34.9) E66.811 LINO (obstructive sleep apnea) G47.33 Dyslipidemia E78.5 Assessment & Plan Assessment & Plan (1) Obesity (BMI 30.0-34.9): Code(s): E66.811 - Obesity, class 1 Category: Medical (2) LINO (obstructive sleep apnea): Code(s): G47.33 - Obstructive sleep apnea (adult) (pediatric) Category: Medical (3) Dyslipidemia: Code(s): E78.5 - Hyperlipidemia, unspecified Category: Medical Plan 30 year old female presenting for follow up She has LINO obesity and hyperlipidemia (done at psychiatry office) She would benefit for GLP-1 as she has failed diet and exercise. She will see nutrition Orders: Referrals Nutrition/Dietitian Referral E66.811 - Obesity, class 1 Medications: New Zepbound (tirzepatide (weight loss)) for 4 weeks 2.5 mg (0.5 mL) subcut QWEEK 2 mL 3RF NS E66.811 - Obesity, class 1, G47.33 - Obstructive sleep apnea (adult) (pediatric)
--- OUTSIDE RECORDS SUMMARY | 2025-10-16 15:31 | XMS_ITS | Encounter Summary ---
Author Organization [facility] Address [address] [place] [address] Phone Care Team Providers Care Promotions Firm Accounts Manager Name Role Phone Crystal Peter MD Primary Care Provider [phone] Encounter Details Date Type Department Care Team (Late st Contact Info) Description 03/27/2012 Documentation [facility] [place] Family Medicine [address] [place], [place] [phone] Family Medicine, Physician [address] [place], [place] 320831 Social History Tobacco Use Types Packs/Day Years [...] on filedocumented in this encounter Care Teams Promotions Firm Accounts Manager Relationship Specialty Start Date End Date Crystal Peter MD [address] [place] [address] [place] [address] PCP - General 07/06/17 02/25/23 documented as of this encounter
--- OUTSIDE RECORDS SUMMARY | 2025-10-16 15:31 | XMS_ITS | Encounter Summary ---
Author Organization [facility] Address [address] [place] [address] Phone Care Team Providers Care Analytical Strategist Name Role Phone Crystal Peter MD Primary Care Provider [phone] Encounter Details Date Type Department Care Team (Late st Contact Info) Description 07/12/2017 Conversion Encounter [facility] [address] [place] [address] Social History Tobacco Use Types Packs/Day Years [...] on filedocumented in this encounter Care Teams Analytical Strategist Relationship Specialty Start Date End Date Crystal Peter MD [address] [place] [address] PCP - General 07/06/17 02/25/23 documented as of this encounter
--- OUTSIDE RECORDS SUMMARY | 2025-10-16 15:31 | XMS_ITS | Encounter Summary ---
Author Organization [facility] Address [address] [place] [address] Phone Care Team Providers Care Product Development Engineer Name Role Phone Crystal Peter MD Primary Care Provider [phone] Encounter Details Date Type Department Care Team (Late st Contact Info) Description 12/12/2013 Documentation [facility] [place] Medicine [address] [place], [place] [phone] Family Medicine, Physician [address] [place], [place] [address]38[address] Social History Tobacco Use Types Packs/Day Years [...] on filedocumented in this encounter Care Teams Product Development Engineer Relationship Specialty Start Date End Date Crystal Peter MD [address] [place] [address] [place] [address] PCP - General 07/06/17 02/25/23 documented as of this encounter
--- OUTSIDE RECORDS SUMMARY | 2025-10-16 15:31 | XMS_ITS | Clinical Summary ---
Author Organization [facility] Address [address] [place] [address] Phone Care Team Providers Care Cell Manager Name Role Phone Unavailable Primary Care Provider [...]
--- OUTSIDE RECORDS SUMMARY | 2025-10-16 15:31 | XMS_ITS | Clinical Summary ---
Author Organization [facility] Address [address] [place] [address] Care Team Providers Care Scan Coordinator Name Role Phone Abel Huggins MD Primary [...] RESULTING AGENCY - 06/24/2024 4:50 PM EDT [id number] THINPREP PAP, IMAGED: NEGATIVE FOR SQUAMOUS INTRAEPITHELIAL [...] Recently Relevant to Health Maintenance Care Teams Scan Coordinator Relationship Specialty Start Date End Date Abel Huggins MD [address] [place] [address] Dr Jonel [place] PCP - General 06/18/24
--- OUTSIDE RECORDS SUMMARY | 2025-10-16 15:31 | XMS_ITS | Encounter Summary ---
Author Organization [facility] Address [address] [place] [address] Phone Care Team Providers Care Materials Development Engineer Name Role Phone Crystal Peter MD Primary Care Provider [phone] Encounter Details Date Type Department Care Team (Late st Contact Info) Description 06/15/2014 Documentation [facility] [place] [address] [place], [place] 3344693 Family Medicine, Physician [address] [place], [place] [address]651 Social History Tobacco Use Types Packs/Day Years [...] on filedocumented in this encounter Care Teams Materials Development Engineer Relationship Specialty Start Date End Date Crystal Peter MD [address] [place] [address] [place] [address] PCP - General 07/06/17 02/25/23 documented as of this encounter
--- OUTSIDE RECORDS SUMMARY | 2025-10-16 15:32 | XMS_ITS | Encounter Summary ---
Author Organization [facility] Address [address] [place] [address] Phone Care Team Providers Care Paperhanger Assistant Name Role Phone Crystal Peter MD Primary Care Provider [phone] Encounter Details Date Type Department Care Team (Late st Contact Info) Description 03/25/2012 [place] [facility] [place] [address] [place], [place] [phone] Family Medicine, Physician [address] [place], [place] 893981 Social History Tobacco Use Types Packs/Day Years [...] on filedocumented in this encounter Care Teams Paperhanger Assistant Relationship Specialty Start Date End Date Crystal Peter MD [address] [place] [address] [place] [address] PCP - General 07/06/17 02/25/23 documented as of this encounter
--- OUTSIDE RECORDS SUMMARY | 2025-10-16 15:32 | XMS_ITS | Encounter Summary ---
Author Organization [facility] Address [address] [place] [address] Phone Care Team Providers Care Client Reporting Associate Name Role Phone Crystal Peter MD Primary Care Provider [phone] Encounter Details Date Type Department Care Team (Late st Contact Info) Description 10/22/2012 Documentation [facility] [place] Family Medicine [address] [place], [place] [phone] Family Medicine, Physician [address] [place], [place] 472251 Social History Tobacco Use Types Packs/Day Years [...] on filedocumented in this encounter Care Teams Client Reporting Associate Relationship Specialty Start Date End Date Crystal Peter MD [address] [place] [address] [place] [address] PCP - General 07/06/17 02/25/23 documented as of this encounter
--- OUTSIDE RECORDS SUMMARY | 2025-10-16 15:32 | XMS_ITS | Encounter Summary ---
Author Organization [facility] Address [address] [place] [address] Phone Care Team Providers Care Senior Underwriting Assistant Name Role Phone Crystal Peter MD Primary Care Provider [phone] Encounter Details Date Type Department Care Team (Late st Contact Info) Description 03/28/2012 Documentation [facility] Family Medicine [address] [place], [place] [phone] Family Medicine, Physician [address] [place], [place] [address]61 Social History Tobacco Use Types Packs/Day Years [...] on filedocumented in this encounter Care Teams Senior Underwriting Assistant Relationship Specialty Start Date End Date Crystal Peter MD [address] [place] [address] [place] [address] PCP - General 07/06/17 02/25/23 documented as of this encounter
--- OUTSIDE RECORDS SUMMARY | 2025-10-16 15:32 | XMS_ITS | Patient Health Record ---
Author Organization [facility] Address [address] [place] [address] Care Team Providers Care Scallop Shucker Name Role Phone OLYA MICHEL [phone] Allergies Allergen (clinical drug ingredient) Drug/Non Drug [...] Lab:[facility], [address], [address], [place], Phone - [phone], Director - [facility] Notes/Report: Chlamydia by [facility] Negative Negative Gonococcus by [facility] Negative Negative Trich vag by [facility] Negative Negative Reason For Referral No Information Medications Medication SIG (Take, Route, Frequency, Duration) Notes Start Date End Date Status Mirena 2021? Active Ubrelvy Active Dupixent Active Aimovig Active Effexor Active Albuterol As needed Active MetroGel-Vaginal 0.75 % Gel 1 application at bedtime Vaginal Once a day; Duration: 5 day(s) 12/10/2024 Active Social History Sex Assigned At : Social History Observation Description Sex Assigned At Female Social History HIV Risk Assessment Social Info Question Answer Notes Additional Questions Is an HIV Risk Asse ssment being conducted? No Reproductive Life Plan: Social Info Question Answer Notes Reproductive Life Plan: Do you want to have chil dren? No, I don't want to have children How sure are you that you will be able to use your control method without any problems? Very sure People's plans change. Is it possible you or your partner could ever decide to become ? Yes Human Trafficking: Social Info Question Answer Notes Human Trafficking Experienced: No PrEP for HIV: Social Info Question Answer Notes PrEP for HIV Is the client intere sted in beginning/continuing PrEP for HIV? No Sexual History: Social Info Question Answer Notes Sexual History: Sexual History Reviewed: Partner s, Practices, Protection/Past STIs Currently sexually active? Yes Your sexual activities include: vaginal intercourse Per client no oral IC Do you use condoms? No Date of last unprotected intercourse: 11/19/2024 Number of partners in past 3 months: 1 Number of partners in past year: 1 Does your partner(s) currently have any STIs? No Counseling Provided: Social Info Question Answer Notes Counseling Provided Please indicate the length of time, in minutes, that counseling was provided. 7 Counseling Was Provided By: carmel Drugs/Alcohol: Social Info Question Answer Notes Drug/Alcohol Use Do you or have you used drugs? No Per client Do you or have you used alcohol? Yes, currently Socially Food Access: Social Info Question Answer Notes Food Access The Client's current access to food is Secure Food Access Relationships: Social Info Question Answer Notes Relationships Has the client exper ienced any of the following: Client has never experienced harmful relationships Housing Social Info Question Answer Notes Housing The client's current living situation is: stable housing Tobacco Use: Social Info Question Answer Notes Tobacco Use: Do you/have you used tobacco? No Tobacco Smoking Status Unknown if ever smoked Section Notes: Aptima Vital Signs Blood pressure diastolic 68 mm Hg 12/10/2024 Height 5'0 in 12/10/2024 Blood pressure systolic 116 mm Hg 12/10/2024 Weight 161.2 lbs 12/10/2024 BMI 31.48 kg/m2 12/10/2024 Encounters Encounter Location Date Provider Diagnosis [facility] [address] [place], [place] [id number] 12/10/2024 OLYA MICHEL Encounter for scre ening [...] Insured Coverage Start Date Coverage End Date [facility] [employer] [address] [address] [place], [place] [id number] Coby Timmons Self - patient is the insured Medical (General) History Medical History History ICD Code Migraines asthma Depression/anxiety Hospitalization History Reason Date(Month/Year) Child
[2025-10-16 15:36] VITALS: BP 102/74; PULSE 105; RESP 14; O2SAT 99; BMI 34.8
== END 2025-10-16 15:54 | disposition home or self-care (01) ==
LOC: HO.HMCFM 15:26
PROVIDERS: PCP Internal Medicine; Visit Provider Internal Medicine
DX: E66.811 Obesity, class 1 (principal); G47.33 Obstructive sleep apnea (adult) (pediatric); E78.5 Hyperlipidemia, unspecified; Z68.34 Body mass index [BMI] 34.0-34.9, adult

== ENCOUNTER → 2025-10-16 15:25 | Outpatient (BNVA) | payer OTHER, SELFPAY | PROVIDERS: PCP Internal Medicine; Visit Provider Internal Medicine | DX: E66.811 Obesity, class 1 (principal); E78.5 Hyperlipidemia, unspecified; G47.33 Obstructive sleep apnea (adult) (pediatric) | CPT/HCPCS: 99212 ==